=== PATIENT | male | born 1955 | race Two or more races ===

== ENCOUNTER 2020-03-28 13:19 | Inpatient (IN) | payer OTHER ==
[~2020-03-28] VITALS: Ht 170.2 cm; Wt 79.1 kg
--- NOTE | 2020-03-28 13:42 | NUR ---
BIB BY [facility] FROM HOME FOR WORSENING SOB. KNOWN COVID +. PRESENTS WITH WORSENING OF SYTMPTOMS-SOB/ABD PAIN-POOR APPETITE. EMS REPORTS PATIENT FOUND TO HAVE ROOM AIR POX OF 74%. IMPROVED TO MID 90'S OF 3L NC AFEBRILE/VSS BUT APPEARS WEAK. 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
[2020-03-28] MEDS ORDERED: EPINEPHRINE SYRINGE 0.1 MG/ML, 10ML ONE (14:00)
--- NOTE | 2020-03-28 14:05 | NUR ---
LAB AT BEDSIDE-LACTATE/2 BLOOD CULTURES AND BASIC BLOOD WORK OBTAINED CXR AT BEDSIDE
[2020-03-28 14:15] LABS: MEAN CORPUSCULAR HEMOGLOBIN 32.9 pg (27.5-34.5); MEAN CORPUSCULAR HGB CONC 34.1 g/dL (33.2-36.2); MEAN PLATELET VOLUME 7.2 fL (7.4-10.4); PLATELET COUNT 137 x10^3/uL (130-400); RED BLOOD COUNT 4.56 x10^6/uL (4.38-5.82); RED CELL DISTRIBUTION WIDTH 12.9 % (9.4-14.8)
[2020-03-28] MEDS ORDERED: CEFTRIAXONE PMX 1GM/50ML 50 ML ONE (14:22)
[2020-03-28 14:24] LABS: ALANINE AMINOTRANSFERASE 21 U/L (12-78); ALBUMIN 2.5 g/dL (3.4-5.0); ANION GAP 7 mmol/L (5-15); CALCIUM 7.8 mg/dL (8.5-10.1); CHLORIDE 104 mmol/L (98-107)
--- NOTE | 2020-03-28 14:25 | NUR ---
ABX 1/2 ADMINISTERED PER EMAR (BOTH BLOOD CULTURES ALREADY OBTAINED)
[2020-03-28 14:29] LABS: D-DIMER (DIC) 1.12 ug/mlFEU (0.00-0.52); PROTIME 11.3 Seconds (9.6-11.5)
[2020-03-28] MEDS ORDERED: PLEASE ENTER ALLERGIES MC SCH (14:30)
[2020-03-28] MEDS ORDERED: AZITHROMYCIN 500 MG in SODIUM CHLORIDE 0.9% 250 ML IVPB ONE (14:30)
[2020-03-28] MEDS ORDERED: CEFTRIAXONE PMX 1GM/50ML 50 ML IVPB ONE (14:30)
[2020-03-28 14:32] LABS: ALKALINE PHOSPHATASE 67 U/L (45-117); BILIRUBIN,TOTAL 0.5 mg/dL (0.2-1.0); CREATININE 1.03 mg/dL (0.7-1.3); TOTAL PROTEIN 7.6 g/dL (6.4-8.2)
[2020-03-28] MEDS ORDERED: SODIUM CHLORIDE 0.9% 1,000 ML IV ONE ×3 (14:35→15:30)
[2020-03-28 14:42] LABS: BASOPHILS # (AUTO) 0.02 x10^3/uL (0-0.1); BASOPHILS % (AUTO) 0 % (0-1); EOSINOPHILS # (AUTO) 0.03 x10^3/uL (0-0.4); EOSINOPHILS % (AUTO) 1 % (1-7); LYMPHOCYTES # (AUTO) 0.97 x10^3/uL (1-3.4); LYMPHOCYTES % (AUTO) 18 % (22-44); MD SCAN; MONOCYTES # (AUTO) 0.21 x10^3/uL (0.2-0.8); MONOCYTES % (AUTO) 4 % (2-9); NEUTROPHILS # (AUTO) 4.21 x10^3/uL (1.8-6.8); NEUTROPHILS % (AUTO) 77 % (42-75)
[2020-03-28] MEDS ORDERED: ACETAMINOPHEN 500 MG TABLET ONE (14:55)
[2020-03-28] MEDS ORDERED: SODIUM CHLORIDE FLUSH 10ML SYR IVF PRN (15:00)
[2020-03-28] MEDS ORDERED: ACETAMINOPHEN 500 MG TABLET PO ONE (15:00)
--- NOTE | 2020-03-28 15:05 | NUR ---
abx 1/2 complete, abx 2/2 administered per emar Patient updated on estimated poc (admit to covid unit for covid pna tx) Report to Fernando TENA
[2020-03-28] MEDS ORDERED: ONDANSETRON 2MG/ML, 2ML IVPush PRN (15:30)
[2020-03-28] MEDS ORDERED: GUAIFENESIN/DM 200-20MG, 10ML UDC PO PRN (15:30)
[2020-03-28] MEDS ORDERED: LABETALOL 5MG/ML, 20ML IVPush PRN (15:30)
[2020-03-28] MEDS ORDERED: ONDANSETRON ODT 4 MG PO PRN (15:30)
[2020-03-28] MEDS ORDERED: hydrALAzine 20 MG/ML, 1ML IVPush PRN (15:30)
[2020-03-28] MEDS ORDERED: BACLOFEN 10 MG TABLET PO PRN (15:30)
[2020-03-28] MEDS ORDERED: BUTALB/APAP/CAFFEINE 50MG/325MG/40MG PO PRN ×2 (15:30)
--- NOTE | 2020-03-28 15:39 | NUR ---
Report to Kami TENA
--- NOTE | 2020-03-28 15:43 | NUR ---
At this time pt is being treated with sepsis orders but does not meet sepsis criteria. aware.
[2020-03-28 16:09] VITALS: BP 114/67
[2020-03-28] MEDS: methylPREDNISolone SOD SUCC 40 MG/ML IVPush SCH ×2 (17:50→23:25)
[2020-03-28] MEDS: ASCORBATE SODIUM 3,000 MG in SODIUM CHLORIDE 0.9% 250 ML IVPB SCH ×2 (17:50→23:25)
[2020-03-28] MEDS: ENOXAPARIN 80 MG/0.8 ML SQ SCH (17:51)
[2020-03-28] MEDS: ACETAMINOPHEN 325 MG TABLET PO PRN (18:08)
[2020-03-28 19:24] VITALS: BP 125/68
[2020-03-29] MEDS: CEFTRIAXONE PMX 1GM/50ML 50 ML IV SCH ×2 (01:59→15:15)
[2020-03-29 02:00] VITALS: BP 159/79
[2020-03-29 05:38] LABS: BASOPHILS # (AUTO) 0.01 x10^3/uL (0-0.1); BASOPHILS % (AUTO) 0 % (0-1); EOSINOPHILS % (AUTO) 0 % (1-7); LYMPHOCYTES # (AUTO) 1.08 x10^3/uL (1-3.4); LYMPHOCYTES % (AUTO) 23 % (22-44); MD NO; MEAN CORPUSCULAR HEMOGLOBIN 32.4 pg (27.5-34.5); MEAN CORPUSCULAR HGB CONC 33.1 g/dL (33.2-36.2); MEAN PLATELET VOLUME 7.1 fL (7.4-10.4); MONOCYTES % (AUTO) 2 % (2-9); NEUTROPHILS # (AUTO) 3.57 x10^3/uL (1.8-6.8); NEUTROPHILS % (AUTO) 75 % (42-75); PLATELET COUNT 149 x10^3/uL (130-400); RED BLOOD COUNT 4.63 x10^6/uL (4.38-5.82); RED CELL DISTRIBUTION WIDTH 12.8 % (9.4-14.8)
[2020-03-29 05:49] LABS: CHLORIDE 104 mmol/L (98-107)
[2020-03-29 06:07] LABS: ALANINE AMINOTRANSFERASE 21 U/L (12-78); ALBUMIN 2.3 g/dL (3.4-5.0); ALKALINE PHOSPHATASE 65 U/L (45-117); ANION GAP 13 mmol/L (5-15); BILIRUBIN,TOTAL 0.3 mg/dL (0.2-1.0); CALCIUM 7.6 mg/dL (8.5-10.1); CREATININE 1.39 mg/dL (0.7-1.3); TOTAL PROTEIN 7.4 g/dL (6.4-8.2)
[2020-03-29] MEDS: methylPREDNISolone SOD SUCC 40 MG/ML IVPush SCH ×4 (06:10→23:52)
[2020-03-29] MEDS: ENOXAPARIN 80 MG/0.8 ML SQ SCH ×2 (06:10→18:16)
[2020-03-29] MEDS: ASCORBATE SODIUM 3,000 MG in SODIUM CHLORIDE 0.9% 250 ML IVPB SCH ×3 (06:10→20:22)
[2020-03-29 07:11] VITALS: BP 153/89
[2020-03-29] MEDS: SENNA/DOCUSATE TABLET PO SCH (09:21)
[2020-03-29] MEDS: MULTIVITS,STRESS FORMULA 1 TABLET PO SCH (09:21)
[2020-03-29] MEDS: CHOLECALCIFEROL 5,000u TAB PO SCH (09:21)
[2020-03-29] MEDS: ZINC SULFATE 220 MG CAPSULE PO SCH (09:21)
[2020-03-29 12:41] VITALS: BP 131/71
[2020-03-29] MEDS ORDERED: INSULIN LISPRO 100 UNITS/ML, PEN SQ-INSULIN SCH (13:00)
[2020-03-29] MEDS ORDERED: ALBUTEROL-IPRATROPIUM MDI INH INH SCH (15:00)
[2020-03-29] MEDS: ALBUTEROL-IPRATROPIUM MDI INH INH SCH ×2 (15:48→21:41)
[2020-03-29] MEDS: INSULIN LISPRO 100 UNITS/ML, PEN SQ-INSULIN SCH ×2 (16:29→20:23)
[2020-03-29] MEDS: AZITHROMYCIN 500 MG in SODIUM CHLORIDE 0.9% 250 ML IV SCH (16:32)
[2020-03-29 19:36] VITALS: BP 115/62
[2020-03-30 00:42] VITALS: BP 123/65
[2020-03-30] MEDS: CEFTRIAXONE PMX 1GM/50ML 50 ML IV SCH ×2 (03:18→14:47)
[2020-03-30] MEDS: ALBUTEROL-IPRATROPIUM MDI INH INH SCH ×4 (03:51→22:07)
[2020-03-30] MEDS: ASCORBATE SODIUM 3,000 MG in SODIUM CHLORIDE 0.9% 250 ML IVPB SCH ×4 (03:51→23:15)
[2020-03-30] MEDS: ENOXAPARIN 80 MG/0.8 ML SQ SCH ×2 (05:50→17:50)
[2020-03-30] MEDS: methylPREDNISolone SOD SUCC 40 MG/ML IVPush SCH ×4 (05:50→23:15)
[2020-03-30 06:44] VITALS: BP 127/67
[2020-03-30] MEDS: INSULIN LISPRO 100 UNITS/ML, PEN SQ-INSULIN SCH ×4 (09:14→20:35)
[2020-03-30] MEDS: SENNA/DOCUSATE TABLET PO SCH (09:15)
[2020-03-30] MEDS: CHOLECALCIFEROL 5,000u TAB PO SCH (09:15)
[2020-03-30] MEDS: MULTIVITS,STRESS FORMULA 1 TABLET PO SCH (09:15)
[2020-03-30] MEDS: ZINC SULFATE 220 MG CAPSULE PO SCH (09:15)
[2020-03-30 12:12] VITALS: BP 121/72
[2020-03-30] MEDS: AZITHROMYCIN 500 MG in SODIUM CHLORIDE 0.9% 250 ML IV SCH (16:15)
[2020-03-30 19:35] VITALS: BP 121/61
[2020-03-31 01:44] VITALS: BP 127/69
[2020-03-31 02:20] VITALS: BP 125/53
[2020-03-31] MEDS: CEFTRIAXONE PMX 1GM/50ML 50 ML IV SCH ×2 (02:39→14:41)
[2020-03-31] MEDS: ALBUTEROL-IPRATROPIUM MDI INH INH SCH ×4 (03:37→21:48)
[2020-03-31] MEDS: methylPREDNISolone SOD SUCC 40 MG/ML IVPush SCH ×4 (05:03→21:51)
[2020-03-31] MEDS: ASCORBATE SODIUM 3,000 MG in SODIUM CHLORIDE 0.9% 250 ML IVPB SCH ×3 (05:03→20:47)
[2020-03-31] MEDS: ENOXAPARIN 80 MG/0.8 ML SQ SCH ×2 (05:03→19:35)
[2020-03-31] MEDS: SENNA/DOCUSATE TABLET PO SCH (06:56)
[2020-03-31 07:49] VITALS: BP 137/66
[2020-03-31] MEDS: INSULIN LISPRO 100 UNITS/ML, PEN SQ-INSULIN SCH ×4 (08:34→20:35)
[2020-03-31] MEDS: MULTIVITS,STRESS FORMULA 1 TABLET PO SCH (08:34)
[2020-03-31] MEDS: CHOLECALCIFEROL 5,000u TAB PO SCH (08:34)
[2020-03-31] MEDS: ZINC SULFATE 220 MG CAPSULE PO SCH (08:35)
[2020-03-31] MEDS ORDERED: SIMETHICONE 80 MG CHEW TAB PO PRN (10:30)
[2020-03-31] MEDS ORDERED: CALCIUM CARBONATE 500 MG TAB.CHEW PO PRN (10:30)
[2020-03-31 13:29] VITALS: BP 131/56
[2020-03-31] MEDS ORDERED: REMDESIVIR 200 MG in SODIUM CHLORIDE 0.9% 250 ML IVPB ONE (15:00)
[2020-03-31] MEDS: AZITHROMYCIN 500 MG in SODIUM CHLORIDE 0.9% 250 ML IV SCH (15:50)
[2020-03-31 19:56] VITALS: BP 133/55
[2020-04-01] MEDS: ACETAMINOPHEN 325 MG TABLET PO PRN ×2 (01:28→23:46)
[2020-04-01] MEDS: CEFTRIAXONE PMX 1GM/50ML 50 ML IV SCH ×2 (02:03→15:43)
[2020-04-01 02:19] VITALS: BP 128/54
[2020-04-01] MEDS: ASCORBATE SODIUM 3,000 MG in SODIUM CHLORIDE 0.9% 250 ML IVPB SCH ×4 (03:16→20:45)
[2020-04-01] MEDS: ALBUTEROL-IPRATROPIUM MDI INH INH SCH ×4 (03:17→21:00)
[2020-04-01] MEDS: methylPREDNISolone SOD SUCC 40 MG/ML IVPush SCH ×4 (05:14→23:40)
[2020-04-01] MEDS: ENOXAPARIN 80 MG/0.8 ML SQ SCH ×2 (05:15→18:36)
[2020-04-01 06:22] LABS: BASOPHILS % (AUTO) 0 % (0-1); EOSINOPHILS % (AUTO) 0 % (1-7); LYMPHOCYTES # (AUTO) 0.69 x10^3/uL (1-3.4); LYMPHOCYTES % (AUTO) 7 % (22-44); MD NO; MEAN CORPUSCULAR HEMOGLOBIN 32.5 pg (27.5-34.5); MEAN CORPUSCULAR HGB CONC 33.4 g/dL (33.2-36.2); MEAN PLATELET VOLUME 7.4 fL (7.4-10.4); MONOCYTES # (AUTO) 0.16 x10^3/uL (0.2-0.8); MONOCYTES % (AUTO) 2 % (2-9); NEUTROPHILS # (AUTO) 8.68 x10^3/uL (1.8-6.8); NEUTROPHILS % (AUTO) 91 % (42-75); PLATELET COUNT 205 x10^3/uL (130-400); RED BLOOD COUNT 4.18 x10^6/uL (4.38-5.82); RED CELL DISTRIBUTION WIDTH 13.1 % (9.4-14.8)
[2020-04-01 06:29] LABS: ALANINE AMINOTRANSFERASE 20 U/L (12-78); ALBUMIN 2.2 g/dL (3.4-5.0); ALKALINE PHOSPHATASE 81 U/L (45-117); ANION GAP 11 mmol/L (5-15); BILIRUBIN,TOTAL 0.3 mg/dL (0.2-1.0); CALCIUM 7.5 mg/dL (8.5-10.1); CHLORIDE 112 mmol/L (98-107); CREATININE 0.79 mg/dL (0.7-1.3)
[2020-04-01 06:31] LABS: TOTAL PROTEIN 6.5 g/dL (6.4-8.2)
[2020-04-01 07:11] VITALS: BP 124/58
[2020-04-01] MEDS: SENNA/DOCUSATE TABLET PO SCH (09:00)
[2020-04-01] MEDS: CHOLECALCIFEROL 5,000u TAB PO SCH (09:55)
[2020-04-01] MEDS: ZINC SULFATE 220 MG CAPSULE PO SCH (09:55)
[2020-04-01] MEDS: MULTIVITS,STRESS FORMULA 1 TABLET PO SCH (09:55)
[2020-04-01] MEDS: INSULIN LISPRO 100 UNITS/ML, PEN SQ-INSULIN SCH ×4 (09:55→20:46)
[2020-04-01 12:04] VITALS: BP 132/64
[2020-04-01] MEDS: FLUTICASONE/VILANTEROL 100-25MCG/INH INH SCH (14:09)
[2020-04-01] MEDS: POTASSIUM CHLORIDE 20 MEQ in SODIUM CHLORIDE 0.9% 250 ML IV SCH ×2 (14:09→21:01)
[2020-04-01] MEDS: AZITHROMYCIN 500 MG in SODIUM CHLORIDE 0.9% 250 ML IV SCH (17:04)
[2020-04-01 20:00] VITALS: BP 130/58
[2020-04-01] MEDS: REMDESIVIR 100 MG in SODIUM CHLORIDE 0.9% 250 ML IVPB SCH (20:40)
[2020-04-01] MEDS: MELATONIN 5 MG TABLET PO PRN (23:46)
[2020-04-02] MEDS: CEFTRIAXONE PMX 1GM/50ML 50 ML IV SCH ×2 (02:18→14:38)
[2020-04-02 02:30] VITALS: BP 128/58
[2020-04-02] MEDS: ASCORBATE SODIUM 3,000 MG in SODIUM CHLORIDE 0.9% 250 ML IVPB SCH ×2 (03:16→08:28)
[2020-04-02] MEDS: ALBUTEROL-IPRATROPIUM MDI INH INH SCH ×4 (03:16→20:59)
[2020-04-02] MEDS: ENOXAPARIN 80 MG/0.8 ML SQ SCH ×2 (05:29→17:56)
[2020-04-02] MEDS: methylPREDNISolone SOD SUCC 40 MG/ML IVPush SCH ×2 (05:29→11:57)
[2020-04-02 06:19] LABS: ALANINE AMINOTRANSFERASE 20 U/L (12-78); ANION GAP 8 mmol/L (5-15); CALCIUM 7.4 mg/dL (8.5-10.1); CHLORIDE 115 mmol/L (98-107); CREATININE 0.74 mg/dL (0.7-1.3)
[2020-04-02 06:21] LABS: ALKALINE PHOSPHATASE 111 U/L (45-117); BILIRUBIN,TOTAL 0.4 mg/dL (0.2-1.0); TOTAL PROTEIN 6.4 g/dL (6.4-8.2)
[2020-04-02 06:39] VITALS: BP 136/65
[2020-04-02] MEDS: INSULIN LISPRO 100 UNITS/ML, PEN SQ-INSULIN SCH ×4 (07:00→21:21)
[2020-04-02] MEDS: POTASSIUM CHLORIDE 20 MEQ in SODIUM CHLORIDE 0.9% 250 ML IV SCH (08:51)
[2020-04-02] MEDS: SENNA/DOCUSATE TABLET PO SCH (09:00)
[2020-04-02] MEDS: FLUTICASONE/VILANTEROL 100-25MCG/INH INH SCH (09:44)
[2020-04-02] MEDS: CHOLECALCIFEROL 5,000u TAB PO SCH (11:57)
[2020-04-02] MEDS: MULTIVITS,STRESS FORMULA 1 TABLET PO SCH (11:57)
[2020-04-02] MEDS: THIAMINE 100MG TABLET PO SCH ×2 (11:57→20:48)
[2020-04-02] MEDS: ZINC SULFATE 220 MG CAPSULE PO SCH (11:57)
[2020-04-02] MEDS: ACETAMINOPHEN 325 MG TABLET PO PRN ×2 (12:08→16:24)
[2020-04-02 12:18] VITALS: BP 134/53
[2020-04-02] MEDS: AZITHROMYCIN 500 MG in SODIUM CHLORIDE 0.9% 250 ML IV SCH (15:20)
[2020-04-02] MEDS ORDERED: POTASSIUM CHLORIDE 20 MEQ TAB.ER.PRT PO ONE (16:30)
[2020-04-02] MEDS ORDERED: FUROSEMIDE 40 MG/4 ML IV ONE (16:30)
[2020-04-02] MEDS: REMDESIVIR 100 MG in SODIUM CHLORIDE 0.9% 250 ML IVPB SCH (17:56)
[2020-04-02 18:37] LABS: TROPONIN I < 0.015 ng/mL (0.000-0.045)
[2020-04-02] MEDS: MELATONIN 5 MG TABLET PO PRN (20:48)
[2020-04-02 23:35] LABS: TROPONIN I < 0.015 ng/mL (0.000-0.045)
[2020-04-03] MEDS: CEFTRIAXONE PMX 1GM/50ML 50 ML IV SCH ×2 (02:54→13:54)
[2020-04-03] MEDS: ALBUTEROL-IPRATROPIUM MDI INH INH SCH ×4 (03:16→21:08)
[2020-04-03 04:30] LABS: PLATELET COUNT 253 x10^3/uL (130-400)
[2020-04-03 04:39] LABS: INTERNATIONAL NORMALIZED RATIO 1.31 (0.93-1.1); PROTHROMBIN TIME 13.5 Seconds (9.6-11.5)
[2020-04-03 04:45] LABS: ALBUMIN 2.1 g/dL (3.4-5.0); ANION GAP 9 mmol/L (5-15); CHLORIDE 112 mmol/L (98-107)
[2020-04-03 04:50] LABS: ALANINE AMINOTRANSFERASE 17 U/L (12-78); ALKALINE PHOSPHATASE 107 U/L (45-117); BILIRUBIN,TOTAL 0.5 mg/dL (0.2-1.0); CREATININE 0.76 mg/dL (0.7-1.3); TOTAL PROTEIN 6.3 g/dL (6.4-8.2); TROPONIN I < 0.015 ng/mL (0.000-0.045)
[2020-04-03] MEDS: ENOXAPARIN 80 MG/0.8 ML SQ SCH ×2 (06:25→17:33)
[2020-04-03] MEDS: INSULIN LISPRO 100 UNITS/ML, PEN SQ-INSULIN SCH ×4 (06:37→20:57)
[2020-04-03] MEDS ORDERED: POTASSIUM CHLORIDE 20 MEQ TAB.ER.PRT PO ONE ×2 (07:00→14:00)
[2020-04-03 08:02] LABS: C-REACTIVE PROTEIN, QUANT 6.8 mg/dL (0.02-0.49)
[2020-04-03] MEDS: FLUTICASONE/VILANTEROL 100-25MCG/INH INH SCH (08:16)
[2020-04-03] MEDS: ZINC SULFATE 220 MG CAPSULE PO SCH (08:30)
[2020-04-03] MEDS: MULTIVITS,STRESS FORMULA 1 TABLET PO SCH (08:30)
[2020-04-03] MEDS: SENNA/DOCUSATE TABLET PO SCH (08:30)
[2020-04-03] MEDS: THIAMINE 100MG TABLET PO SCH ×2 (08:30→20:51)
[2020-04-03] MEDS: CHOLECALCIFEROL 5,000u TAB PO SCH (08:31)
[2020-04-03 09:00] VITALS: BP 103/54
[2020-04-03] MEDS ORDERED: FUROSEMIDE 40 MG/4 ML IV ONE (09:00)
[2020-04-03] MEDS: ACETAMINOPHEN 325 MG TABLET PO PRN (09:37)
[2020-04-03] MEDS: REMDESIVIR 100 MG in SODIUM CHLORIDE 0.9% 250 ML IVPB SCH (17:33)
[2020-04-03] MEDS: RISPERIDONE 0.5 MG TABLET PO SCH (20:52)
[2020-04-04] MEDS: CEFTRIAXONE PMX 1GM/50ML 50 ML IV SCH ×2 (02:07→13:49)
[2020-04-04] MEDS: LORazepam 2 MG/ML, 1ML IVPush PRN ×2 (02:07→09:22)
[2020-04-04] MEDS: ALBUTEROL-IPRATROPIUM MDI INH INH SCH (04:00)
[2020-04-04 04:19] LABS: MEAN CORPUSCULAR HEMOGLOBIN 32.3 pg (27.5-34.5); MEAN CORPUSCULAR HGB CONC 33.4 g/dL (33.2-36.2); MEAN PLATELET VOLUME 6.8 fL (7.4-10.4); PLATELET COUNT 239 x10^3/uL (130-400); RED BLOOD COUNT 4.05 x10^6/uL (4.38-5.82); RED CELL DISTRIBUTION WIDTH 13.1 % (9.4-14.8)
[2020-04-04 04:30] LABS: ALANINE AMINOTRANSFERASE 13 U/L (12-78); ALBUMIN 1.8 g/dL (3.4-5.0); ANION GAP 10 mmol/L (5-15); CALCIUM 6.8 mg/dL (8.5-10.1); CHLORIDE 111 mmol/L (98-107); CREATININE 1.04 mg/dL (0.7-1.3)
[2020-04-04 04:32] LABS: ALKALINE PHOSPHATASE 96 U/L (45-117); BILIRUBIN,TOTAL 0.7 mg/dL (0.2-1.0)
[2020-04-04 04:47] LABS: BASOPHILS # (AUTO) 0.02 x10^3/uL (0-0.1); BASOPHILS % (AUTO) 0 % (0-1); EOSINOPHILS # (AUTO) 0.08 x10^3/uL (0-0.4); EOSINOPHILS % (AUTO) 1 % (1-7); LYMPHOCYTES # (AUTO) 0.53 x10^3/uL (1-3.4); LYMPHOCYTES % (AUTO) 5 % (22-44); MD SCAN; MONOCYTES # (AUTO) 0.04 x10^3/uL (0.2-0.8); MONOCYTES % (AUTO) 0 % (2-9); NEUTROPHILS # (AUTO) 9.73 x10^3/uL (1.8-6.8); NEUTROPHILS % (AUTO) 94 % (42-75)
[2020-04-04] MEDS ORDERED: ALBUTEROL/IPRATROPIUM 2.5MG/0.5MG, 3 ML NEB ONE ×2 (06:30)
[2020-04-04] MEDS: ENOXAPARIN 80 MG/0.8 ML SQ SCH ×2 (06:45→17:15)
[2020-04-04] MEDS: INSULIN LISPRO 100 UNITS/ML, PEN SQ-INSULIN SCH ×4 (06:48→21:56)
[2020-04-04] MEDS ORDERED: IPRATROPIUM 0.5 MG/2.5 ML INHA INLINE PRN (07:30)
[2020-04-04] MEDS ORDERED: SODIUM CHLORIDE 0.9% 1,000ML IVBOLUS ONE (07:30)
[2020-04-04] MEDS: MIDAZOLAM HCL 50 MG in SODIUM CHLORIDE 0.9% 40 ML IV PRN ×3 (07:57→17:58)
[2020-04-04] MEDS ORDERED: PROPOFOL 10 MG/ML, 100ML IV ONE (08:00)
[2020-04-04] MEDS ORDERED: SUCCINYLCHOLINE 20 MG/ML, 10ML ONE (08:00)
[2020-04-04] MEDS ORDERED: ETOMIDATE 20 MG/10 ML ONE (08:00)
[2020-04-04] MEDS ORDERED: PROPOFOL 100 ML IV ONE (08:51)
[2020-04-04] MEDS: FLUTICASONE/VILANTEROL 100-25MCG/INH INH SCH (09:00)
[2020-04-04] MEDS: PROPOFOL 100 ML IV PRN ×2 (10:00→17:57)
[2020-04-04] MEDS: NOREPINEPHRINE 8 MG in SODIUM CHLORIDE 0.9% 242 ML IV PRN (10:00)
[2020-04-04] MEDS ORDERED: POTASSIUM CHLORIDE 20 MEQ TAB.ER.PRT PO ONE (10:00)
[2020-04-04] MEDS: ALBUTEROL/IPRATROPIUM 2.5MG/0.5MG, 3 ML INLINE SCH ×4 (10:28→22:18)
[2020-04-04] MEDS: MULTIVITS,STRESS FORMULA 1 TABLET PO SCH (10:37)
[2020-04-04] MEDS: SENNA/DOCUSATE TABLET PO SCH (10:38)
[2020-04-04] MEDS: ACETAMINOPHEN 325 MG TABLET PO PRN ×2 (10:38→18:31)
[2020-04-04] MEDS: THIAMINE 100MG TABLET PO SCH ×2 (10:39→21:56)
[2020-04-04] MEDS: ZINC SULFATE 220 MG CAPSULE PO SCH (10:39)
[2020-04-04] MEDS: RISPERIDONE 0.5 MG TABLET PO SCH ×2 (10:39→21:00)
[2020-04-04] MEDS: CHOLECALCIFEROL 5,000u TAB PO SCH (10:39)
[2020-04-04] MEDS: REMDESIVIR 100 MG in SODIUM CHLORIDE 0.9% 250 ML IVPB SCH (17:14)
[2020-04-04] MEDS: MELATONIN 5 MG TABLET PO PRN (21:56)
[2020-04-04 22:36] LABS: MICROSCOPIC INDICATED
[2020-04-05] MEDS: CEFTRIAXONE PMX 1GM/50ML 50 ML IV SCH (00:26)
[2020-04-05] MEDS: PROPOFOL 100 ML IV PRN ×5 (01:10→21:20)
[2020-04-05] MEDS: NOREPINEPHRINE 8 MG in SODIUM CHLORIDE 0.9% 242 ML IV PRN ×4 (01:42→22:50)
[2020-04-05] MEDS: ALBUTEROL/IPRATROPIUM 2.5MG/0.5MG, 3 ML INLINE SCH ×6 (02:12→23:10)
[2020-04-05] MEDS: MIDAZOLAM HCL 50 MG in SODIUM CHLORIDE 0.9% 40 ML IV PRN ×4 (03:21→19:59)
[2020-04-05] MEDS: FENTANYL PF 1,000 MCG in SODIUM CHLORIDE 0.9% 80 ML IV PRN ×5 (03:43→20:40)
[2020-04-05 04:54] LABS: MEAN CORPUSCULAR HEMOGLOBIN 32.2 pg (27.5-34.5); MEAN CORPUSCULAR HGB CONC 32.7 g/dL (33.2-36.2); MEAN PLATELET VOLUME 6.9 fL (7.4-10.4); PLATELET COUNT 267 x10^3/uL (130-400); RED BLOOD COUNT 4.24 x10^6/uL (4.38-5.82); RED CELL DISTRIBUTION WIDTH 13.4 % (9.4-14.8)
[2020-04-05 05:01] LABS: ALBUMIN 1.7 g/dL (3.4-5.0); ANION GAP 9 mmol/L (5-15); CALCIUM 6.8 mg/dL (8.5-10.1); CHLORIDE 110 mmol/L (98-107)
[2020-04-05 05:05] LABS: ALANINE AMINOTRANSFERASE 14 U/L (12-78); ALKALINE PHOSPHATASE 106 U/L (45-117); BILIRUBIN,TOTAL 0.6 mg/dL (0.2-1.0); CREATININE 1.14 mg/dL (0.7-1.3); TOTAL PROTEIN 6.3 g/dL (6.4-8.2)
[2020-04-05 05:34] LABS: BASOPHILS # (AUTO) 0.01 x10^3/uL (0-0.1); BASOPHILS % (AUTO) 0 % (0-1); EOSINOPHILS # (AUTO) 0.35 x10^3/uL (0-0.4); EOSINOPHILS % (AUTO) 3 % (1-7); LYMPHOCYTES # (AUTO) 0.61 x10^3/uL (1-3.4); LYMPHOCYTES % (AUTO) 4 % (22-44); MD SCAN; MONOCYTES # (AUTO) 0.06 x10^3/uL (0.2-0.8); MONOCYTES % (AUTO) 1 % (2-9); NEUTROPHILS # (AUTO) 12.67 x10^3/uL (1.8-6.8); NEUTROPHILS % (AUTO) 93 % (42-75)
[2020-04-05] MEDS: ENOXAPARIN 80 MG/0.8 ML SQ SCH ×2 (06:00→17:31)
[2020-04-05] MEDS: INSULIN LISPRO 100 UNITS/ML, PEN SQ-INSULIN SCH ×4 (06:31→20:44)
[2020-04-05] MEDS: FLUTICASONE/VILANTEROL 100-25MCG/INH INH SCH (06:37)
[2020-04-05] MEDS: MEROPENEM 1 GM in SODIUM CHLORIDE 0.9% 100 ML IV SCH ×3 (08:41→22:04)
[2020-04-05] MEDS: MULTIVITS,STRESS FORMULA 1 TABLET PO SCH (08:42)
[2020-04-05] MEDS: ZINC SULFATE 220 MG CAPSULE PO SCH (08:42)
[2020-04-05] MEDS: CHOLECALCIFEROL 5,000u TAB PO SCH (08:43)
[2020-04-05] MEDS: RISPERIDONE 0.5 MG TABLET PO SCH ×2 (08:43→21:00)
[2020-04-05] MEDS: SENNA/DOCUSATE TABLET PO SCH (08:43)
[2020-04-05] MEDS: THIAMINE 100MG TABLET PO SCH ×2 (08:43→21:20)
[2020-04-05 09:00] VITALS: BP 113/57
[2020-04-05] MEDS ORDERED: POTASSIUM CHLORIDE 10% 20 MEQ/15 ML UDC PO ONE (11:00)
[2020-04-05] MEDS: FAMOTIDINE 20 MG/2 ML IVPush SCH ×2 (11:32→21:20)
[2020-04-05 13:35] VITALS: BP 102/55
[2020-04-05 13:45] VITALS: BP 110/56
[2020-04-05 14:00] VITALS: BP 119/58
[2020-04-05 14:15] VITALS: BP 120/61
[2020-04-05] MEDS: BACITRACIN/POLYMIXIN B SULFATE OINT 14 GM TP PRN (22:04)
[2020-04-06] MEDS: PROPOFOL 100 ML IV PRN ×3 (00:51→12:38)
[2020-04-06] MEDS: FENTANYL PF 2,500 MCG in SODIUM CHLORIDE 0.9% 200 ML IV PRN ×2 (01:13→12:16)
[2020-04-06] MEDS: ACETAMINOPHEN 325 MG TABLET PO PRN (01:15)
[2020-04-06] MEDS: MIDAZOLAM HCL 50 MG in SODIUM CHLORIDE 0.9% 40 ML IV PRN ×3 (02:01→15:32)
[2020-04-06] MEDS: ALBUTEROL/IPRATROPIUM 2.5MG/0.5MG, 3 ML INLINE SCH ×6 (02:06→22:43)
[2020-04-06] MEDS: NOREPINEPHRINE 8 MG in SODIUM CHLORIDE 0.9% 242 ML IV PRN ×3 (04:11→22:04)
[2020-04-06 04:44] LABS: MEAN CORPUSCULAR HEMOGLOBIN 32.3 pg (27.5-34.5); MEAN CORPUSCULAR HGB CONC 32.7 g/dL (33.2-36.2); MEAN PLATELET VOLUME 7.1 fL (7.4-10.4); PLATELET COUNT 184 x10^3/uL (130-400); RED BLOOD COUNT 3.65 x10^6/uL (4.38-5.82); RED CELL DISTRIBUTION WIDTH 13.9 % (9.4-14.8)
[2020-04-06 04:57] LABS: ALBUMIN 1.3 g/dL (3.4-5.0); ANION GAP 6 mmol/L (5-15); CALCIUM 6.5 mg/dL (8.5-10.1); CHLORIDE 113 mmol/L (98-107)
[2020-04-06 05:01] LABS: ALANINE AMINOTRANSFERASE 9 U/L (12-78); ALKALINE PHOSPHATASE 100 U/L (45-117); BILIRUBIN,TOTAL 0.5 mg/dL (0.2-1.0); CREATININE 1.88 mg/dL (0.7-1.3); TOTAL PROTEIN 5.7 g/dL (6.4-8.2)
[2020-04-06 05:39] LABS: BASOPHILS % (AUTO) 0 % (0-1); EOSINOPHILS # (AUTO) 0.37 x10^3/uL (0-0.4); EOSINOPHILS % (AUTO) 3 % (1-7); LYMPHOCYTES # (AUTO) 0.31 x10^3/uL (1-3.4); LYMPHOCYTES % (AUTO) 2 % (22-44); MD SCAN; MONOCYTES # (AUTO) 0.08 x10^3/uL (0.2-0.8); MONOCYTES % (AUTO) 1 % (2-9); NEUTROPHILS # (AUTO) 13.28 x10^3/uL (1.8-6.8); NEUTROPHILS % (AUTO) 95 % (42-75)
[2020-04-06] MEDS: ENOXAPARIN 80 MG/0.8 ML SQ SCH ×2 (06:24→18:00)
[2020-04-06] MEDS: MEROPENEM 1 GM in SODIUM CHLORIDE 0.9% 100 ML IV SCH ×3 (06:24→20:26)
[2020-04-06] MEDS: INSULIN LISPRO 100 UNITS/ML, PEN SQ-INSULIN SCH ×4 (06:28→20:27)
[2020-04-06] MEDS ORDERED: CALCIUM CHLORIDE 27.2 MEQ in SODIUM CHLORIDE 0.9% 100 ML IV ONE (07:00)
[2020-04-06] MEDS: SENNA/DOCUSATE TABLET PO SCH (08:29)
[2020-04-06] MEDS: CHOLECALCIFEROL 5,000u TAB PO SCH (08:29)
[2020-04-06] MEDS: THIAMINE 100MG TABLET PO SCH ×2 (08:29→20:26)
[2020-04-06] MEDS: ZINC SULFATE 220 MG CAPSULE PO SCH (08:29)
[2020-04-06] MEDS: FAMOTIDINE 20 MG/2 ML IVPush SCH ×2 (08:30→20:26)
[2020-04-06] MEDS: MULTIVITS,STRESS FORMULA 1 TABLET PO SCH (08:30)
[2020-04-06] MEDS: RISPERIDONE 0.5 MG TABLET PO SCH ×2 (08:30→20:10)
[2020-04-06] MEDS: INSULIN GLARGINE 100 UNITS/ML, PEN SQ-INSULIN SCH ×2 (09:00→20:27)
[2020-04-06] MEDS: REMDESIVIR 100 MG in SODIUM CHLORIDE 0.9% 250 ML IVPB SCH (09:30)
[2020-04-06] MEDS: ALBUMIN HUMAN 25% 100 ML IV SCH ×3 (10:49→22:02)
[2020-04-07] MEDS: FENTANYL PF 2,500 MCG in SODIUM CHLORIDE 0.9% 200 ML IV PRN ×2 (02:24→19:20)
[2020-04-07] MEDS: PROPOFOL 100 ML IV PRN ×5 (02:28→22:51)
[2020-04-07] MEDS: ALBUTEROL/IPRATROPIUM 2.5MG/0.5MG, 3 ML INLINE SCH ×6 (02:43→22:09)
[2020-04-07] MEDS: ACETAMINOPHEN 325 MG TABLET PO PRN (04:12)
[2020-04-07] MEDS: ALBUMIN HUMAN 25% 100 ML IV SCH (04:13)
[2020-04-07] MEDS: ENOXAPARIN 80 MG/0.8 ML SQ SCH (04:59)
[2020-04-07] MEDS: NOREPINEPHRINE 8 MG in SODIUM CHLORIDE 0.9% 242 ML IV PRN ×3 (05:57→16:38)
[2020-04-07 06:18] LABS: BASOPHILS # (AUTO) 0.06 x10^3/uL (0-0.1); BASOPHILS % (AUTO) 1 % (0-1); EOSINOPHILS # (AUTO) 0.43 x10^3/uL (0-0.4); EOSINOPHILS % (AUTO) 3 % (1-7); LYMPHOCYTES # (AUTO) 0.31 x10^3/uL (1-3.4); LYMPHOCYTES % (AUTO) 2 % (22-44); MD NO; MEAN CORPUSCULAR HEMOGLOBIN 32.6 pg (27.5-34.5); MEAN CORPUSCULAR HGB CONC 33.8 g/dL (33.2-36.2); MEAN PLATELET VOLUME 7.2 fL (7.4-10.4); MONOCYTES # (AUTO) 0.08 x10^3/uL (0.2-0.8); MONOCYTES % (AUTO) 1 % (2-9); NEUTROPHILS # (AUTO) 12.04 x10^3/uL (1.8-6.8); NEUTROPHILS % (AUTO) 93 % (42-75); PLATELET COUNT 147 x10^3/uL (130-400); RED CELL DISTRIBUTION WIDTH 14.2 % (9.4-14.8)
[2020-04-07 06:19] LABS: INTERNATIONAL NORMALIZED RATIO 1.3 (0.93-1.1); PROTHROMBIN TIME 13.4 Seconds (9.6-11.5)
[2020-04-07 06:22] LABS: ALANINE AMINOTRANSFERASE 8 U/L (12-78); ALBUMIN 2.4 g/dL (3.4-5.0); ANION GAP 8 mmol/L (5-15); CALCIUM 7.9 mg/dL (8.5-10.1); CHLORIDE 114 mmol/L (98-107); CREATININE 2.64 mg/dL (0.7-1.3)
[2020-04-07 06:25] LABS: ALKALINE PHOSPHATASE 86 U/L (45-117); BILIRUBIN,TOTAL 1.3 mg/dL (0.2-1.0); TOTAL PROTEIN 6.4 g/dL (6.4-8.2)
[2020-04-07] MEDS: INSULIN LISPRO 100 UNITS/ML, PEN SQ-INSULIN SCH ×4 (07:50→21:50)
[2020-04-07] MEDS ORDERED: HEPARIN wt. based STROKE protocol MC PRN (08:30)
[2020-04-07] MEDS ORDERED: HEPARIN 5,000 UNITS/ML, 1ML IV ONE (09:00)
[2020-04-07] MEDS ORDERED: HEPARIN 25,000 UNITS/250ML PMX 250 ML IV PRN (09:00)
[2020-04-07] MEDS ORDERED: HEPARIN 5,000 UNITS/ML, 1ML IV PRN (09:00)
[2020-04-07] MEDS: ZINC SULFATE 220 MG CAPSULE PO SCH (09:27)
[2020-04-07] MEDS: THIAMINE 100MG TABLET PO SCH ×2 (09:27→21:36)
[2020-04-07] MEDS: SENNA/DOCUSATE TABLET PO SCH (09:27)
[2020-04-07] MEDS: MULTIVITS,STRESS FORMULA 1 TABLET PO SCH (09:27)
[2020-04-07] MEDS: MEROPENEM 1 GM in SODIUM CHLORIDE 0.9% 100 ML IV SCH ×2 (09:28→21:35)
[2020-04-07] MEDS: CHOLECALCIFEROL 5,000u TAB PO SCH (09:28)
[2020-04-07] MEDS: RISPERIDONE 0.5 MG TABLET PO SCH ×2 (09:29→21:00)
[2020-04-07] MEDS: REMDESIVIR 100 MG in SODIUM CHLORIDE 0.9% 250 ML IVPB SCH (09:42)
[2020-04-07] MEDS: INSULIN GLARGINE 100 UNITS/ML, PEN SQ-INSULIN SCH ×2 (10:08→21:51)
[2020-04-07] MEDS: FAMOTIDINE 20 MG/2 ML IVPush SCH (21:35)
[2020-04-08] MEDS: ALBUTEROL/IPRATROPIUM 2.5MG/0.5MG, 3 ML INLINE SCH ×6 (02:16→22:08)
[2020-04-08] MEDS: NOREPINEPHRINE 8 MG in SODIUM CHLORIDE 0.9% 242 ML IV PRN ×2 (02:48→11:41)
[2020-04-08] MEDS: PROPOFOL 100 ML IV PRN ×2 (04:23→12:05)
[2020-04-08 04:59] LABS: ALANINE AMINOTRANSFERASE 15 U/L (12-78); ALBUMIN 1.7 g/dL (3.4-5.0); ANION GAP 5 mmol/L (5-15); CALCIUM 7.1 mg/dL (8.5-10.1); CHLORIDE 112 mmol/L (98-107)
[2020-04-08] MEDS ORDERED: HEPARIN 5,000 UNITS/ML, 1ML IV ONE (05:00)
[2020-04-08 05:02] LABS: ALKALINE PHOSPHATASE 100 U/L (45-117); BILIRUBIN,TOTAL 1.4 mg/dL (0.2-1.0); CREATININE 3.32 mg/dL (0.7-1.3); TOTAL PROTEIN 5.9 g/dL (6.4-8.2)
[2020-04-08] MEDS: INSULIN LISPRO 100 UNITS/ML, PEN SQ-INSULIN SCH ×4 (05:55→22:44)
[2020-04-08] MEDS: SENNA/DOCUSATE TABLET PO SCH (08:06)
[2020-04-08 08:43] LABS: MEAN CORPUSCULAR HEMOGLOBIN 32.4 pg (27.5-34.5); MEAN CORPUSCULAR HGB CONC 33.3 g/dL (33.2-36.2); MEAN PLATELET VOLUME 7.1 fL (7.4-10.4); PLATELET COUNT 129 x10^3/uL (130-400); RED BLOOD COUNT 3.44 x10^6/uL (4.38-5.82)
[2020-04-08] MEDS: MEROPENEM 1 GM in SODIUM CHLORIDE 0.9% 100 ML IV SCH ×2 (08:47→22:43)
[2020-04-08] MEDS: ZINC SULFATE 220 MG CAPSULE PO SCH (08:49)
[2020-04-08] MEDS: CHOLECALCIFEROL 5,000u TAB PO SCH (08:49)
[2020-04-08] MEDS: MULTIVITS,STRESS FORMULA 1 TABLET PO SCH (08:49)
[2020-04-08] MEDS: THIAMINE 100MG TABLET PO SCH ×2 (08:49→21:00)
[2020-04-08] MEDS ORDERED: REMDESIVIR 50 MG in SODIUM CHLORIDE 0.9% 250 ML IVPB SCH (09:00)
[2020-04-08 09:22] LABS: BASOPHILS # (AUTO) 0.03 x10^3/uL (0-0.1); BASOPHILS % (AUTO) 0 % (0-1); EOSINOPHILS # (AUTO) 0.42 x10^3/uL (0-0.4); EOSINOPHILS % (AUTO) 3 % (1-7); LYMPHOCYTES # (AUTO) 0.53 x10^3/uL (1-3.4); LYMPHOCYTES % (AUTO) 4 % (22-44); MD SCAN; MONOCYTES # (AUTO) 0.35 x10^3/uL (0.2-0.8); MONOCYTES % (AUTO) 3 % (2-9); NEUTROPHILS # (AUTO) 11.23 x10^3/uL (1.8-6.8); NEUTROPHILS % (AUTO) 90 % (42-75)
[2020-04-08] MEDS: HEPARIN 25,000 UNITS/250ML PMX 250 ML IV PRN (09:25)
[2020-04-08] MEDS ORDERED: FUROSEMIDE 100 MG/10 ML IV ONE ×2 (09:30→14:30)
[2020-04-08] MEDS ORDERED: FUROSEMIDE 40 MG/4 ML ONE (09:34)
[2020-04-08] MEDS: BACITRACIN/POLYMIXIN B SULFATE OINT 14 GM TP PRN (10:00)
[2020-04-08] MEDS: VECURONIUM 50 MG in SODIUM CHLORIDE 0.9% 50 ML IV PRN ×2 (11:40→16:54)
[2020-04-08 11:41] LABS: CLOSTRIDIUM DIFFICILE ANTIGEN NEGATIVE; CLOSTRIDIUM DIFFICILE TOXIN NEGATIVE (Negative)
[2020-04-08] MEDS: INSULIN GLARGINE 100 UNITS/ML, PEN SQ-INSULIN SCH ×2 (11:42→22:45)
[2020-04-08] MEDS ORDERED: VECURONIUM 10 MG ONE (14:12)
[2020-04-08] MEDS ORDERED: VECURONIUM 10 MG IVPush ONE (14:30)
[2020-04-08] MEDS ORDERED: SODIUM BICARBONATE 1 MEQ/ML, 50ML VIAL IVPush ONE (18:06)
[2020-04-08] MEDS ORDERED: SODIUM BICARBONATE 8.4% 100 MEQ in DEXTROSE 5% 1,000 ML IV SCH (18:30)
[2020-04-08] MEDS: FAMOTIDINE 20 MG/2 ML IVPush SCH (22:43)
[2020-04-09] MEDS: ALBUTEROL/IPRATROPIUM 2.5MG/0.5MG, 3 ML INLINE SCH ×6 (02:16→22:38)
[2020-04-09 05:41] LABS: MEAN CORPUSCULAR HEMOGLOBIN 32.3 pg (27.5-34.5); MEAN CORPUSCULAR HGB CONC 33.2 g/dL (33.2-36.2); PLATELET COUNT 108 x10^3/uL (130-400); RED BLOOD COUNT 3.54 x10^6/uL (4.38-5.82); RED CELL DISTRIBUTION WIDTH 15.6 % (9.4-14.8)
[2020-04-09] MEDS: NOREPINEPHRINE 8 MG in SODIUM CHLORIDE 0.9% 242 ML IV PRN (05:47)
[2020-04-09 05:52] LABS: ALBUMIN 1.5 g/dL (3.4-5.0); ANION GAP 7 mmol/L (5-15); CALCIUM 7.6 mg/dL (8.5-10.1); CHLORIDE 106 mmol/L (98-107)
[2020-04-09 05:57] LABS: ALANINE AMINOTRANSFERASE 14 U/L (12-78); ALKALINE PHOSPHATASE 132 U/L (45-117); BILIRUBIN,TOTAL 1.5 mg/dL (0.2-1.0); CREATININE 5.42 mg/dL (0.7-1.3); TOTAL PROTEIN 6.4 g/dL (6.4-8.2)
[2020-04-09 06:10] LABS: BASOPHILS # (AUTO) 0.04 x10^3/uL (0-0.1); BASOPHILS % (AUTO) 0 % (0-1); EOSINOPHILS # (AUTO) 0.09 x10^3/uL (0-0.4); EOSINOPHILS % (AUTO) 1 % (1-7); LYMPHOCYTES # (AUTO) 0.47 x10^3/uL (1-3.4); LYMPHOCYTES % (AUTO) 4 % (22-44); MD SCAN; MONOCYTES # (AUTO) 0.26 x10^3/uL (0.2-0.8); MONOCYTES % (AUTO) 2 % (2-9); NEUTROPHILS % (AUTO) 93 % (42-75)
[2020-04-09] MEDS: MEROPENEM 1 GM in SODIUM CHLORIDE 0.9% 100 ML IV SCH ×2 (08:01→20:48)
[2020-04-09] MEDS: INSULIN LISPRO 100 UNITS/ML, PEN SQ-INSULIN SCH ×4 (08:01→22:52)
[2020-04-09] MEDS: ZINC SULFATE 220 MG CAPSULE PO SCH (08:02)
[2020-04-09] MEDS: CHOLECALCIFEROL 5,000u TAB PO SCH (08:02)
[2020-04-09] MEDS: MULTIVITS,STRESS FORMULA 1 TABLET PO SCH (08:02)
[2020-04-09] MEDS: THIAMINE 100MG TABLET PO SCH ×2 (08:02→20:49)
[2020-04-09] MEDS: INSULIN GLARGINE 100 UNITS/ML, PEN SQ-INSULIN SCH ×2 (08:02→21:03)
[2020-04-09] MEDS: SENNA/DOCUSATE TABLET PO SCH (08:02)
[2020-04-09] MEDS: HEPARIN 5,000 UNITS/ML, 1ML IV PRN ×2 (12:36→19:10)
[2020-04-09] MEDS: HEPARIN 25,000 UNITS/250ML PMX 250 ML IV PRN (19:11)
[2020-04-09] MEDS: FAMOTIDINE 20 MG/2 ML IVPush SCH (20:48)
[2020-04-10] MEDS: ALBUTEROL/IPRATROPIUM 2.5MG/0.5MG, 3 ML INLINE SCH ×6 (02:23→22:40)
[2020-04-10 04:02] LABS: INTERNATIONAL NORMALIZED RATIO 1.22 (0.93-1.1); PROTHROMBIN TIME 12.6 Seconds (9.6-11.5)
[2020-04-10 04:05] LABS: ALBUMIN 1.5 g/dL (3.4-5.0); ANION GAP 6 mmol/L (5-15); CALCIUM 7.9 mg/dL (8.5-10.1); CHLORIDE 104 mmol/L (98-107)
[2020-04-10 04:08] LABS: ALANINE AMINOTRANSFERASE 21 U/L (12-78); ALKALINE PHOSPHATASE 145 U/L (45-117); BILIRUBIN,TOTAL 1.4 mg/dL (0.2-1.0); CREATININE 4.35 mg/dL (0.7-1.3); TOTAL PROTEIN 6.3 g/dL (6.4-8.2)
[2020-04-10] MEDS: INSULIN LISPRO 100 UNITS/ML, PEN SQ-INSULIN SCH ×4 (04:13→23:25)
[2020-04-10 05:34] LABS: CLOSTRIDIUM DIFFICILE ANTIGEN NEGATIVE; CLOSTRIDIUM DIFFICILE TOXIN NEGATIVE (Negative)
[2020-04-10] MEDS: SENNA/DOCUSATE TABLET PO SCH (07:34)
[2020-04-10] MEDS: ZINC SULFATE 220 MG CAPSULE PO SCH (07:50)
[2020-04-10] MEDS: MULTIVITS,STRESS FORMULA 1 TABLET PO SCH (07:50)
[2020-04-10] MEDS: THIAMINE 100MG TABLET PO SCH ×2 (07:50→20:58)
[2020-04-10] MEDS: MEROPENEM 1 GM in SODIUM CHLORIDE 0.9% 100 ML IV SCH (07:51)
[2020-04-10] MEDS: CHOLECALCIFEROL 5,000u TAB PO SCH (07:51)
[2020-04-10] MEDS: INSULIN GLARGINE 100 UNITS/ML, PEN SQ-INSULIN SCH ×2 (07:58→21:10)
[2020-04-10] MEDS ORDERED: REMDESIVIR 50 MG in SODIUM CHLORIDE 0.9% 250 ML IVPB ONE (09:30)
[2020-04-10] MEDS: HEPARIN 5,000 UNITS/ML, 1ML IV PRN (10:09)
[2020-04-10] MEDS: MEROPENEM 500 MG in SODIUM CHLORIDE 0.9% 100 ML IVPB SCH (20:57)
[2020-04-10] MEDS: FAMOTIDINE 20 MG/2 ML IVPush SCH (20:58)
[2020-04-10] MEDS: HEPARIN 25,000 UNITS/250ML PMX 250 ML IV PRN (23:29)
[2020-04-11] MEDS: HEPARIN 5,000 UNITS/ML, 1ML IV PRN ×2 (01:26→08:19)
[2020-04-11] MEDS: ALBUTEROL/IPRATROPIUM 2.5MG/0.5MG, 3 ML INLINE SCH ×6 (02:33→22:43)
[2020-04-11] MEDS: INSULIN LISPRO 100 UNITS/ML, PEN SQ-INSULIN SCH ×4 (04:47→21:13)
[2020-04-11 05:12] LABS: ALBUMIN 1.5 g/dL (3.4-5.0); ANION GAP 9 mmol/L (5-15); CALCIUM 7.6 mg/dL (8.5-10.1); CHLORIDE 104 mmol/L (98-107)
[2020-04-11 05:15] LABS: ALANINE AMINOTRANSFERASE 22 U/L (12-78); ALKALINE PHOSPHATASE 147 U/L (45-117); BILIRUBIN,TOTAL 1.1 mg/dL (0.2-1.0); CREATININE 4.39 mg/dL (0.7-1.3); TOTAL PROTEIN 6.2 g/dL (6.4-8.2)
[2020-04-11 06:09] LABS: MEAN CORPUSCULAR HEMOGLOBIN 31.8 pg (27.5-34.5); MEAN CORPUSCULAR HGB CONC 33.3 g/dL (33.2-36.2); MEAN PLATELET VOLUME 7.7 fL (7.4-10.4); PLATELET COUNT 85 x10^3/uL (130-400); RED BLOOD COUNT 3.27 x10^6/uL (4.38-5.82); RED CELL DISTRIBUTION WIDTH 15.4 % (9.4-14.8)
[2020-04-11 06:10] LABS: MD YES
[2020-04-11 06:14] LABS: BAND#(MANUAL) 0.08 x10^3/uL; BANDS%(MANUAL) 1 % (0-7); LYMPH#(MANUAL) 0.86 x10^3/uL (1-3.4); LYMPHS% (MANUAL) 11 % (22-44); METAMYELOCYTES# (MANUAL) 0.23 x10^3/uL (0-0); METAMYELOCYTES% (MANUAL) 3 % (0-1); MONOS#(MANUAL) 0.39 x10^3/uL (0.3-2.7); MONOS% (MANUAL) 5 % (2-9); MYELOCYTES# (MANUAL) 0.16 x10^3/uL (0-0); MYELOCYTES% (MANUAL) 2 % (0-0); SEG#(MANUAL) 6.08 x10^3/uL (1.8-6.8); SEGS% (MANUAL) 78 % (42-75)
[2020-04-11 06:16] LABS: <PLATELET ESTIMATE> DECREASED; <PLT MORPHOLOGY> NORMAL PLT MORPH; POLYCHROMASIA 1+
[2020-04-11 06:17] LABS: BASOPHILLIC STIPPLING 1+
[2020-04-11 06:19] LABS: ANISOCYTOSIS 1+
[2020-04-11] MEDS: MEROPENEM 500 MG in SODIUM CHLORIDE 0.9% 100 ML IVPB SCH ×2 (08:19→21:04)
[2020-04-11] MEDS: SENNA/DOCUSATE TABLET PO SCH (08:46)
[2020-04-11 09:00] VITALS: BP 163/76
[2020-04-11] MEDS: ZINC SULFATE 220 MG CAPSULE PO SCH (09:30)
[2020-04-11] MEDS: THIAMINE 100MG TABLET PO SCH ×2 (09:30→21:04)
[2020-04-11] MEDS: CHOLECALCIFEROL 5,000u TAB PO SCH (09:30)
[2020-04-11] MEDS: MULTIVITS,STRESS FORMULA 1 TABLET PO SCH (09:30)
[2020-04-11] MEDS: INSULIN GLARGINE 100 UNITS/ML, PEN SQ-INSULIN SCH ×2 (09:31→21:13)
[2020-04-11] MEDS: ASCORBIC ACID 500 MG TABLET PO SCH ×2 (13:58→17:07)
[2020-04-11] MEDS: DEXAMETHASONE 4 MG/ML, 1ML IVPush SCH (13:59)
[2020-04-11] MEDS: HEPARIN 5,000 UNITS/ML, 1ML SQ SCH ×2 (13:59→23:54)
[2020-04-11] MEDS: FAMOTIDINE 20 MG/2 ML IVPush SCH (21:04)
[2020-04-12] MEDS: ALBUTEROL/IPRATROPIUM 2.5MG/0.5MG, 3 ML INLINE SCH ×6 (03:00→22:59)
[2020-04-12] MEDS: INSULIN LISPRO 100 UNITS/ML, PEN SQ-INSULIN SCH ×4 (04:00→20:04)
[2020-04-12 04:32] LABS: MEAN CORPUSCULAR HGB CONC 33.4 g/dL (33.2-36.2); RED BLOOD COUNT 3.47 x10^6/uL (4.38-5.82); RED CELL DISTRIBUTION WIDTH 15.8 % (9.4-14.8)
[2020-04-12 04:38] LABS: ANION GAP 9 mmol/L (5-15); CHLORIDE 102 mmol/L (98-107)
[2020-04-12 04:39] LABS: CALCIUM 7.7 mg/dL (8.5-10.1)
[2020-04-12 04:40] LABS: CREATININE 4.27 mg/dL (0.7-1.3)
[2020-04-12 06:06] LABS: MD YES; MEAN PLATELET VOLUME 7.6 fL (7.4-10.4); PLATELET COUNT 98 x10^3/uL (130-400)
[2020-04-12 06:08] LABS: ANISOCYTOSIS 1+; BANDS%(MANUAL) 4 % (0-7); EOS% (MANUAL) 3 % (1-7); LYMPH#(MANUAL) 1.58 x10^3/uL (1-3.4); LYMPHS% (MANUAL) 16 % (22-44); MONOS% (MANUAL) 4 % (2-9); SEG#(MANUAL) 7.23 x10^3/uL (1.8-6.8); SEGS% (MANUAL) 73 % (42-75)
[2020-04-12 06:09] LABS: <PLATELET ESTIMATE> DECREASED; <PLT MORPHOLOGY> NORMAL PLT MORPH; POLYCHROMASIA 1+
[2020-04-12] MEDS: HEPARIN 5,000 UNITS/ML, 1ML SQ SCH ×2 (08:15→15:54)
[2020-04-12] MEDS: MEROPENEM 500 MG in SODIUM CHLORIDE 0.9% 100 ML IVPB SCH ×2 (08:15→20:09)
[2020-04-12] MEDS: ASCORBIC ACID 500 MG TABLET PO SCH ×2 (08:15→16:37)
[2020-04-12] MEDS: DEXAMETHASONE 4 MG/ML, 1ML IVPush SCH (09:36)
[2020-04-12] MEDS: THIAMINE 100MG TABLET PO SCH ×2 (09:36→20:01)
[2020-04-12] MEDS: MULTIVITS,STRESS FORMULA 1 TABLET PO SCH (09:37)
[2020-04-12] MEDS: CHOLECALCIFEROL 5,000u TAB PO SCH (09:37)
[2020-04-12] MEDS: ZINC SULFATE 220 MG CAPSULE PO SCH (09:37)
[2020-04-12] MEDS: INSULIN GLARGINE 100 UNITS/ML, PEN SQ-INSULIN SCH ×2 (09:40→20:03)
[2020-04-12] MEDS: LABETALOL 5MG/ML, 20ML IVPush PRN (14:23)
[2020-04-12] MEDS ORDERED: SODIUM BICARB 8.4%, 50ML SYRINGE ONE (19:32)
[2020-04-12] MEDS ORDERED: SODIUM BICARBONATE 1 MEQ/ML, 50ML VIAL IVPush ONE ×2 (20:00)
[2020-04-12] MEDS: FAMOTIDINE 20 MG/2 ML IVPush SCH (20:04)
[2020-04-12] MEDS ORDERED: VECURONIUM 10 MG ONE (23:59)
[2020-04-13] MEDS ORDERED: VECURONIUM 10 MG IVPush ONE (00:30)
[2020-04-13] MEDS: HEPARIN 5,000 UNITS/ML, 1ML SQ SCH ×3 (01:30→16:36)
[2020-04-13] MEDS: ALBUTEROL/IPRATROPIUM 2.5MG/0.5MG, 3 ML INLINE SCH ×6 (03:01→22:43)
[2020-04-13] MEDS: INSULIN LISPRO 100 UNITS/ML, PEN SQ-INSULIN SCH ×4 (03:12→21:57)
[2020-04-13] MEDS: MEROPENEM 500 MG in SODIUM CHLORIDE 0.9% 100 ML IVPB SCH (07:57)
[2020-04-13 08:15] LABS: ANION GAP 10 mmol/L (5-15); CALCIUM 7.2 mg/dL (8.5-10.1); CHLORIDE 106 mmol/L (98-107); CREATININE 4.03 mg/dL (0.7-1.3)
[2020-04-13] MEDS: DEXAMETHASONE 4 MG/ML, 1ML IVPush SCH (08:41)
[2020-04-13] MEDS: ZINC SULFATE 220 MG CAPSULE PO SCH (08:42)
[2020-04-13] MEDS: ASCORBIC ACID 500 MG TABLET PO SCH ×2 (08:42→16:35)
[2020-04-13] MEDS: THIAMINE 100MG TABLET PO SCH ×2 (08:42→21:55)
[2020-04-13] MEDS: CHOLECALCIFEROL 5,000u TAB PO SCH (08:42)
[2020-04-13] MEDS: MULTIVITS,STRESS FORMULA 1 TABLET PO SCH (08:42)
[2020-04-13 08:49] LABS: MEAN CORPUSCULAR HGB CONC 33.5 g/dL (33.2-36.2); RED BLOOD COUNT 3.29 x10^6/uL (4.38-5.82); RED CELL DISTRIBUTION WIDTH 15.6 % (9.4-14.8)
[2020-04-13] MEDS ORDERED: PHARMACY MAY ADJ FOR RENAL FX MC SCH (09:30)
[2020-04-13] MEDS ORDERED: DEXTROSE 4 GM TAB.CHEW PO PRN (09:30)
[2020-04-13] MEDS ORDERED: SENNA/DOCUSATE TABLET NG PRN (09:30)
[2020-04-13] MEDS ORDERED: LACTULOSE 20 GM/30 ML UDC NG PRN (09:30)
[2020-04-13] MEDS ORDERED: GLUCAGON 1 MG IM PRN (09:30)
[2020-04-13] MEDS: SODIUM CHLORIDE FLUSH 10ML SYR IVF SCH ×2 (09:30→21:55)
[2020-04-13 09:55] LABS: PLATELET COUNT 75 x10^3/uL (130-400)
[2020-04-13 09:56] LABS: MD YES
[2020-04-13 10:00] LABS: <PLATELET ESTIMATE> DECREASED; ANISOCYTOSIS 1+; BAND#(MANUAL) 0.34 x10^3/uL; BANDS%(MANUAL) 3 % (0-7); LYMPH#(MANUAL) 1.24 x10^3/uL (1-3.4); LYMPHS% (MANUAL) 11 % (22-44); METAMYELOCYTES# (MANUAL) 0.34 x10^3/uL (0-0); METAMYELOCYTES% (MANUAL) 3 % (0-1); MONOS#(MANUAL) 0.57 x10^3/uL (0.3-2.7); MONOS% (MANUAL) 5 % (2-9); MYELOCYTES# (MANUAL) 0.11 x10^3/uL (0-0); MYELOCYTES% (MANUAL) 1 % (0-0); SEGS% (MANUAL) 77 % (42-75)
[2020-04-13 10:01] LABS: <PLT MORPHOLOGY> NORMAL PLT MORPH; POLYCHROMASIA 1+
[2020-04-13] MEDS: INSULIN GLARGINE 100 UNITS/ML, PEN SQ-INSULIN SCH ×2 (10:45→21:56)
[2020-04-13] MEDS ORDERED: LABETALOL 5MG/ML, 20ML IVPush PRN (12:30)
[2020-04-13] MEDS: FAMOTIDINE 20 MG/2 ML IVPush SCH (21:55)
[2020-04-14] MEDS: HEPARIN 5,000 UNITS/ML, 1ML SQ SCH ×4 (00:16→23:53)
[2020-04-14] MEDS: ALBUTEROL/IPRATROPIUM 2.5MG/0.5MG, 3 ML INLINE SCH ×6 (02:59→22:31)
[2020-04-14] MEDS: INSULIN LISPRO 100 UNITS/ML, PEN SQ-INSULIN SCH ×4 (04:35→21:34)
[2020-04-14 04:44] VITALS: BP 158/72
[2020-04-14 05:11] LABS: ANION GAP 9 mmol/L (5-15); CALCIUM 7.6 mg/dL (8.5-10.1); CHLORIDE 104 mmol/L (98-107); CREATININE 3.65 mg/dL (0.7-1.3)
[2020-04-14 05:48] LABS: MD YES; MEAN CORPUSCULAR HEMOGLOBIN 32.2 pg (27.5-34.5); MEAN CORPUSCULAR HGB CONC 33.6 g/dL (33.2-36.2); MEAN PLATELET VOLUME 8.5 fL (7.4-10.4); PLATELET COUNT 84 x10^3/uL (130-400); RED BLOOD COUNT 3.24 x10^6/uL (4.38-5.82); RED CELL DISTRIBUTION WIDTH 15.4 % (9.4-14.8)
[2020-04-14 05:54] LABS: <PLATELET ESTIMATE> DECREASED; <PLT MORPHOLOGY> NORMAL PLT MORPH; ANISOCYTOSIS 1+; BANDS%(MANUAL) 2 % (0-7); BASOS% (MANUAL) 1 % (0-1); EOS% (MANUAL) 1 % (1-7); LYMPH#(MANUAL) 0.61 x10^3/uL (1-3.4); LYMPHS% (MANUAL) 6 % (22-44); METAMYELOCYTES% (MANUAL) 1 % (0-1); MONOS% (MANUAL) 2 % (2-9); POLYCHROMASIA 1+; SEG#(MANUAL) 8.87 x10^3/uL (1.8-6.8); SEGS% (MANUAL) 87 % (42-75)
[2020-04-14] MEDS: LABETALOL 5MG/ML, 20ML IVPush PRN (06:12)
[2020-04-14] MEDS: MULTIVITS,STRESS FORMULA 1 TABLET PO SCH (08:59)
[2020-04-14] MEDS: ASCORBIC ACID 500 MG TABLET PO SCH ×2 (08:59→16:16)
[2020-04-14] MEDS: ZINC SULFATE 220 MG CAPSULE PO SCH (08:59)
[2020-04-14] MEDS: CHOLECALCIFEROL 5,000u TAB PO SCH (09:00)
[2020-04-14] MEDS: THIAMINE 100MG TABLET PO SCH ×2 (09:00→21:31)
[2020-04-14] MEDS: DEXAMETHASONE INTENSOL 1 MG/ML ORAL SOL JT SCH (09:01)
[2020-04-14] MEDS: SODIUM CHLORIDE FLUSH 10ML SYR IVF SCH ×2 (09:01→21:00)
[2020-04-14] MEDS: INSULIN GLARGINE 100 UNITS/ML, PEN SQ-INSULIN SCH ×2 (10:28→21:33)
[2020-04-14] MEDS: FAMOTIDINE 20 MG/2 ML IVPush SCH (21:31)
[2020-04-15] MEDS: ALBUTEROL/IPRATROPIUM 2.5MG/0.5MG, 3 ML INLINE SCH ×6 (02:34→23:30)
[2020-04-15] MEDS: LABETALOL 5MG/ML, 20ML IVPush PRN (03:35)
[2020-04-15] MEDS: INSULIN LISPRO 100 UNITS/ML, PEN SQ-INSULIN SCH ×4 (04:25→21:16)
[2020-04-15 04:52] LABS: ANION GAP 11 mmol/L (5-15); BASOPHILS # (AUTO) 0.01 x10^3/uL (0-0.1); BASOPHILS % (AUTO) 0 % (0-1); CALCIUM 7.6 mg/dL (8.5-10.1); CHLORIDE 106 mmol/L (98-107); EOSINOPHILS # (AUTO) 0.29 x10^3/uL (0-0.4); EOSINOPHILS % (AUTO) 3 % (1-7); LYMPHOCYTES # (AUTO) 0.97 x10^3/uL (1-3.4); LYMPHOCYTES % (AUTO) 10 % (22-44); MD NO; MEAN CORPUSCULAR HEMOGLOBIN 32.3 pg (27.5-34.5); MEAN CORPUSCULAR HGB CONC 33.7 g/dL (33.2-36.2); MEAN PLATELET VOLUME 8.4 fL (7.4-10.4); MONOCYTES # (AUTO) 0.28 x10^3/uL (0.2-0.8); MONOCYTES % (AUTO) 3 % (2-9); NEUTROPHILS % (AUTO) 84 % (42-75); PLATELET COUNT 103 x10^3/uL (130-400); RED BLOOD COUNT 3.06 x10^6/uL (4.38-5.82); RED CELL DISTRIBUTION WIDTH 15.2 % (9.4-14.8)
[2020-04-15 04:53] LABS: CREATININE 4.86 mg/dL (0.7-1.3)
[2020-04-15 05:00] VITALS: BP 156/66
[2020-04-15] MEDS: ASCORBIC ACID 500 MG TABLET PO SCH ×2 (08:03→16:08)
[2020-04-15] MEDS: DEXAMETHASONE INTENSOL 1 MG/ML ORAL SOL JT SCH (08:03)
[2020-04-15] MEDS: MULTIVITS,STRESS FORMULA 1 TABLET PO SCH (08:03)
[2020-04-15] MEDS: ZINC SULFATE 220 MG CAPSULE PO SCH (08:03)
[2020-04-15] MEDS: CHOLECALCIFEROL 5,000u TAB PO SCH (08:04)
[2020-04-15] MEDS: HEPARIN 5,000 UNITS/ML, 1ML SQ SCH ×2 (08:04→16:08)
[2020-04-15] MEDS: THIAMINE 100MG TABLET PO SCH ×2 (08:04→21:15)
[2020-04-15] MEDS: SODIUM CHLORIDE FLUSH 10ML SYR IVF SCH ×2 (08:05→21:15)
[2020-04-15] MEDS: DOXAZOSIN 2MG TABLET PO SCH (10:46)
[2020-04-15] MEDS: INSULIN GLARGINE 100 UNITS/ML, PEN SQ-INSULIN SCH ×2 (13:02→21:17)
[2020-04-15] MEDS: FAMOTIDINE 20 MG/2 ML IVPush SCH (21:15)
[2020-04-16] MEDS: HEPARIN 5,000 UNITS/ML, 1ML SQ SCH ×3 (01:11→16:46)
[2020-04-16] MEDS: ALBUTEROL/IPRATROPIUM 2.5MG/0.5MG, 3 ML INLINE SCH ×6 (03:30→23:30)
[2020-04-16 04:32] LABS: BASOPHILS % (AUTO) 1 % (0-1); EOSINOPHILS % (AUTO) 5 % (1-7); LYMPHOCYTES % (AUTO) 11 % (22-44); MEAN CORPUSCULAR HGB CONC 33.1 g/dL (33.2-36.2); MEAN PLATELET VOLUME 8.9 fL (7.4-10.4); MONOCYTES % (AUTO) 4 % (2-9); NEUTROPHILS % (AUTO) 80 % (42-75); PLATELET COUNT 106 x10^3/uL (130-400); RED BLOOD COUNT 2.67 x10^6/uL (4.38-5.82); RED CELL DISTRIBUTION WIDTH 15.2 % (9.4-14.8)
[2020-04-16 04:41] LABS: ANION GAP 10 mmol/L (5-15); CALCIUM 7.2 mg/dL (8.5-10.1); CHLORIDE 104 mmol/L (98-107); CREATININE 4.92 mg/dL (0.7-1.3); TRIGLYCERIDES 228 mg/dL (50-200)
[2020-04-16] MEDS: INSULIN LISPRO 100 UNITS/ML, PEN SQ-INSULIN SCH ×4 (04:59→23:00)
[2020-04-16 05:00] LABS: MD SCAN
[2020-04-16 05:25] VITALS: BP 130/60
[2020-04-16] MEDS: SODIUM CHLORIDE FLUSH 10ML SYR IVF SCH ×2 (09:00→20:50)
[2020-04-16] MEDS: CHOLECALCIFEROL 5,000u TAB PO SCH (09:00)
[2020-04-16] MEDS: THIAMINE 100MG TABLET PO SCH ×2 (09:34→20:49)
[2020-04-16] MEDS: DOXAZOSIN 2MG TABLET PO SCH (09:34)
[2020-04-16] MEDS: ASCORBIC ACID 500 MG TABLET PO SCH ×2 (09:35→16:46)
[2020-04-16] MEDS: MULTIVITS,STRESS FORMULA 1 TABLET PO SCH (09:35)
[2020-04-16] MEDS: ZINC SULFATE 220 MG CAPSULE PO SCH (09:35)
[2020-04-16] MEDS: INSULIN GLARGINE 100 UNITS/ML, PEN SQ-INSULIN SCH ×2 (09:41→20:52)
[2020-04-16] MEDS ORDERED: ALBUMIN HUMAN 25% 50 ML IV PRN (10:30)
[2020-04-16] MEDS: FAMOTIDINE 20 MG/2 ML IVPush SCH (20:50)
[2020-04-17] MEDS: HEPARIN 5,000 UNITS/ML, 1ML SQ SCH ×3 (00:39→16:33)
[2020-04-17] MEDS: ALBUTEROL/IPRATROPIUM 2.5MG/0.5MG, 3 ML INLINE SCH ×6 (03:30→22:33)
[2020-04-17] MEDS: INSULIN LISPRO 100 UNITS/ML, PEN SQ-INSULIN SCH ×4 (04:12→22:59)
[2020-04-17] MEDS: DEXTROSE 50%, 50ML SYRINGE IVPush PRN (04:19)
[2020-04-17 04:35] LABS: ANION GAP 12 mmol/L (5-15); CALCIUM 7.2 mg/dL (8.5-10.1); CHLORIDE 104 mmol/L (98-107); CREATININE 5.78 mg/dL (0.7-1.3)
[2020-04-17 04:40] LABS: BASOPHILS % (AUTO) 1 % (0-1); EOSINOPHILS % (AUTO) 4 % (1-7); LYMPHOCYTES % (AUTO) 12 % (22-44); MEAN CORPUSCULAR HEMOGLOBIN 32.4 pg (27.5-34.5); MEAN CORPUSCULAR HGB CONC 33.6 g/dL (33.2-36.2); MEAN PLATELET VOLUME 8.3 fL (7.4-10.4); MONOCYTES % (AUTO) 5 % (2-9); NEUTROPHILS % (AUTO) 78 % (42-75); PLATELET COUNT 139 x10^3/uL (130-400); RED BLOOD COUNT 2.61 x10^6/uL (4.38-5.82); RED CELL DISTRIBUTION WIDTH 15.2 % (9.4-14.8)
[2020-04-17 05:30] VITALS: BP 140/60
[2020-04-17 05:48] LABS: MD SCAN
[2020-04-17] MEDS ORDERED: SODIUM POLYSTYRENE SULFONATE ORAL SUSP PR ONE (06:30)
[2020-04-17] MEDS ORDERED: SODIUM POLYSTYRENE SULFONATE ORAL SUSP PO ONE (07:00)
[2020-04-17] MEDS: CHOLECALCIFEROL 5,000u TAB PO SCH (08:15)
[2020-04-17] MEDS: THIAMINE 100MG TABLET PO SCH ×2 (08:16→20:59)
[2020-04-17] MEDS: ASCORBIC ACID 500 MG TABLET PO SCH ×2 (08:16→16:36)
[2020-04-17] MEDS: MULTIVITS,STRESS FORMULA 1 TABLET PO SCH (08:16)
[2020-04-17] MEDS: ZINC SULFATE 220 MG CAPSULE PO SCH (08:17)
[2020-04-17] MEDS: INSULIN GLARGINE 100 UNITS/ML, PEN SQ-INSULIN SCH ×2 (08:36→20:59)
[2020-04-17] MEDS: DOXAZOSIN 2MG TABLET PO SCH (08:36)
[2020-04-17] MEDS: SODIUM CHLORIDE FLUSH 10ML SYR IVF SCH ×2 (08:37→21:00)
[2020-04-17] MEDS: ALBUMIN HUMAN 25% 100 ML IV PRN ×2 (13:37→14:32)
[2020-04-17] MEDS: FAMOTIDINE 20 MG/2 ML IVPush SCH (20:59)
[2020-04-18] MEDS: HEPARIN 5,000 UNITS/ML, 1ML SQ SCH ×4 (01:00→23:38)
[2020-04-18] MEDS: ALBUTEROL/IPRATROPIUM 2.5MG/0.5MG, 3 ML INLINE SCH ×6 (03:15→22:21)
[2020-04-18 04:00] VITALS: BP 142/58
[2020-04-18] MEDS: INSULIN LISPRO 100 UNITS/ML, PEN SQ-INSULIN SCH ×4 (05:09→23:38)
[2020-04-18 05:33] LABS: BASOPHILS % (AUTO) 1 % (0-1); EOSINOPHILS % (AUTO) 4 % (1-7); LYMPHOCYTES % (AUTO) 8 % (22-44); MEAN CORPUSCULAR HEMOGLOBIN 32.1 pg (27.5-34.5); MEAN PLATELET VOLUME 8.2 fL (7.4-10.4); MONOCYTES % (AUTO) 6 % (2-9); NEUTROPHILS % (AUTO) 82 % (42-75); PLATELET COUNT 143 x10^3/uL (130-400); RED BLOOD COUNT 2.48 x10^6/uL (4.38-5.82); RED CELL DISTRIBUTION WIDTH 15.2 % (9.4-14.8)
[2020-04-18 05:36] LABS: ANION GAP 11 mmol/L (5-15); CALCIUM 7.1 mg/dL (8.5-10.1); CHLORIDE 97 mmol/L (98-107)
[2020-04-18 05:38] LABS: CREATININE 4.53 mg/dL (0.7-1.3)
[2020-04-18 07:02] LABS: MD SCAN
[2020-04-18] MEDS: ZINC SULFATE 220 MG CAPSULE PO SCH (08:09)
[2020-04-18] MEDS: MULTIVITS,STRESS FORMULA 1 TABLET PO SCH (08:09)
[2020-04-18] MEDS: CHOLECALCIFEROL 5,000u TAB PO SCH (08:09)
[2020-04-18] MEDS: THIAMINE 100MG TABLET PO SCH ×2 (08:10→21:19)
[2020-04-18] MEDS: ASCORBIC ACID 500 MG TABLET PO SCH ×2 (08:10→17:02)
[2020-04-18] MEDS: SODIUM CHLORIDE FLUSH 10ML SYR IVF SCH ×2 (08:12→21:20)
[2020-04-18] MEDS: DOXAZOSIN 2MG TABLET PO SCH (08:13)
[2020-04-18] MEDS: INSULIN GLARGINE 100 UNITS/ML, PEN SQ-INSULIN SCH ×2 (08:20→21:20)
[2020-04-18] MEDS ORDERED: NOREPINEPHRINE 1 MG/ML, 4ML ONE (10:49)
[2020-04-18] MEDS ORDERED: NOREPINEPHRINE 8 MG in SODIUM CHLORIDE 0.9% 242 ML IV ONE (11:00)
[2020-04-18] MEDS ORDERED: ALBUMIN HUMAN 25% 50 ML IV PRN (12:00)
[2020-04-18] MEDS: FAMOTIDINE 20 MG/2 ML IVPush SCH (21:19)
[2020-04-19] MEDS: ALBUTEROL/IPRATROPIUM 2.5MG/0.5MG, 3 ML INLINE SCH ×6 (02:25→22:35)
[2020-04-19] MEDS: INSULIN LISPRO 100 UNITS/ML, PEN SQ-INSULIN SCH ×4 (04:37→20:23)
[2020-04-19 05:00] VITALS: BP 132/59
[2020-04-19 05:07] LABS: BASOPHILS % (AUTO) 1 % (0-1); EOSINOPHILS % (AUTO) 5 % (1-7); LYMPHOCYTES % (AUTO) 10 % (22-44); MEAN CORPUSCULAR HEMOGLOBIN 32.6 pg (27.5-34.5); MEAN CORPUSCULAR HGB CONC 33.8 g/dL (33.2-36.2); MEAN PLATELET VOLUME 7.9 fL (7.4-10.4); MONOCYTES % (AUTO) 5 % (2-9); NEUTROPHILS % (AUTO) 80 % (42-75); PLATELET COUNT 160 x10^3/uL (130-400); RED BLOOD COUNT 2.38 x10^6/uL (4.38-5.82); RED CELL DISTRIBUTION WIDTH 14.9 % (9.4-14.8)
[2020-04-19 05:18] LABS: ANION GAP 10 mmol/L (5-15); CALCIUM 7.4 mg/dL (8.5-10.1); CHLORIDE 94 mmol/L (98-107); TRIGLYCERIDES 113 mg/dL (50-200)
[2020-04-19 05:51] LABS: MD SCAN
[2020-04-19] MEDS: THIAMINE 100MG TABLET PO SCH ×2 (08:34→20:21)
[2020-04-19] MEDS: CHOLECALCIFEROL 5,000u TAB PO SCH (08:34)
[2020-04-19] MEDS: MULTIVITS,STRESS FORMULA 1 TABLET PO SCH (08:34)
[2020-04-19] MEDS: DOXAZOSIN 2MG TABLET PO SCH (08:34)
[2020-04-19] MEDS: ASCORBIC ACID 500 MG TABLET PO SCH ×2 (08:34→16:19)
[2020-04-19] MEDS: INSULIN GLARGINE 100 UNITS/ML, PEN SQ-INSULIN SCH ×2 (08:35→20:22)
[2020-04-19] MEDS: HEPARIN 5,000 UNITS/ML, 1ML SQ SCH ×3 (08:35→23:43)
[2020-04-19] MEDS: ZINC SULFATE 220 MG CAPSULE PO SCH (08:37)
[2020-04-19] MEDS: SODIUM CHLORIDE FLUSH 10ML SYR IVF SCH ×2 (08:40→20:21)
--- NOTE | 2020-04-19 10:47 | NUR ---
04/19-TF GOAL: NEPRO @ 50ML/HR
[2020-04-19] MEDS: FAMOTIDINE 20 MG/2 ML IVPush SCH (20:22)
[2020-04-20] MEDS: ALBUTEROL/IPRATROPIUM 2.5MG/0.5MG, 3 ML INLINE SCH ×6 (02:50→22:05)
[2020-04-20] MEDS: INSULIN LISPRO 100 UNITS/ML, PEN SQ-INSULIN SCH ×4 (04:38→21:15)
[2020-04-20 04:39] VITALS: BP 145/72
[2020-04-20 05:25] LABS: BASOPHILS % (AUTO) 1 % (0-1); EOSINOPHILS % (AUTO) 3 % (1-7); LYMPHOCYTES % (AUTO) 9 % (22-44); MEAN CORPUSCULAR HEMOGLOBIN 32.7 pg (27.5-34.5); MEAN CORPUSCULAR HGB CONC 33.9 g/dL (33.2-36.2); MONOCYTES % (AUTO) 6 % (2-9); NEUTROPHILS % (AUTO) 82 % (42-75); PLATELET COUNT 201 x10^3/uL (130-400); RED BLOOD COUNT 2.38 x10^6/uL (4.38-5.82); RED CELL DISTRIBUTION WIDTH 15.1 % (9.4-14.8)
[2020-04-20 05:32] LABS: ANION GAP 11 mmol/L (5-15); CALCIUM 7.6 mg/dL (8.5-10.1); CHLORIDE 94 mmol/L (98-107); CREATININE 5.06 mg/dL (0.7-1.3)
[2020-04-20 06:10] LABS: MD SCAN
[2020-04-20] MEDS: ASCORBIC ACID 500 MG TABLET PO SCH ×2 (08:26→16:58)
[2020-04-20] MEDS: ZINC SULFATE 220 MG CAPSULE PO SCH (08:26)
[2020-04-20] MEDS: THIAMINE 100MG TABLET PO SCH ×2 (08:26→21:13)
[2020-04-20] MEDS: HEPARIN 5,000 UNITS/ML, 1ML SQ SCH ×2 (08:26→16:59)
[2020-04-20] MEDS: MULTIVITS,STRESS FORMULA 1 TABLET PO SCH (08:26)
[2020-04-20] MEDS: DOXAZOSIN 2MG TABLET PO SCH (08:27)
[2020-04-20] MEDS: SODIUM CHLORIDE FLUSH 10ML SYR IVF SCH ×2 (08:27→21:13)
[2020-04-20] MEDS: CHOLECALCIFEROL 5,000u TAB PO SCH (08:27)
[2020-04-20] MEDS: INSULIN GLARGINE 100 UNITS/ML, PEN SQ-INSULIN SCH ×2 (08:28→21:14)
[2020-04-20] MEDS: ALBUMIN HUMAN 25% 100 ML IV PRN ×3 (11:13→11:20)
[2020-04-20] MEDS: FAMOTIDINE 20 MG/2 ML IVPush SCH (21:13)
[2020-04-21] MEDS: HEPARIN 5,000 UNITS/ML, 1ML SQ SCH ×4 (00:09→23:43)
[2020-04-21] MEDS: ALBUTEROL/IPRATROPIUM 2.5MG/0.5MG, 3 ML INLINE SCH ×6 (02:10→23:15)
[2020-04-21 03:53] VITALS: BP 154/72
[2020-04-21] MEDS: INSULIN LISPRO 100 UNITS/ML, PEN SQ-INSULIN SCH ×4 (03:53→21:09)
[2020-04-21 04:24] LABS: BASOPHILS % (AUTO) 1 % (0-1); EOSINOPHILS % (AUTO) 3 % (1-7); LYMPHOCYTES % (AUTO) 7 % (22-44); MEAN CORPUSCULAR HEMOGLOBIN 32.9 pg (27.5-34.5); MEAN PLATELET VOLUME 7.6 fL (7.4-10.4); MONOCYTES % (AUTO) 6 % (2-9); NEUTROPHILS % (AUTO) 84 % (42-75); PLATELET COUNT 226 x10^3/uL (130-400); RED BLOOD COUNT 2.31 x10^6/uL (4.38-5.82); RED CELL DISTRIBUTION WIDTH 14.8 % (9.4-14.8)
[2020-04-21 04:32] LABS: ANION GAP 7 mmol/L (5-15); CALCIUM 8.2 mg/dL (8.5-10.1); CHLORIDE 96 mmol/L (98-107); CREATININE 4.12 mg/dL (0.7-1.3)
[2020-04-21 06:22] LABS: MD MORPH REVIEW ONLY
[2020-04-21 06:23] LABS: ANISOCYTOSIS 1+; BASOPHILLIC STIPPLING 1+; POLYCHROMASIA 1+
[2020-04-21 06:24] LABS: <PLATELET ESTIMATE> ADEQUATE; <PLT MORPHOLOGY> NORMAL PLT MORPH
[2020-04-21] MEDS: ZINC SULFATE 220 MG CAPSULE PO SCH (07:58)
[2020-04-21] MEDS: DOXAZOSIN 2MG TABLET PO SCH (07:58)
[2020-04-21] MEDS: ASCORBIC ACID 500 MG TABLET PO SCH ×2 (07:59→15:39)
[2020-04-21] MEDS: THIAMINE 100MG TABLET PO SCH ×2 (07:59→21:10)
[2020-04-21] MEDS: MULTIVITS,STRESS FORMULA 1 TABLET PO SCH (07:59)
[2020-04-21] MEDS: CHOLECALCIFEROL 5,000u TAB PO SCH (08:00)
[2020-04-21] MEDS: SODIUM CHLORIDE FLUSH 10ML SYR IVF SCH ×2 (08:01→21:00)
[2020-04-21] MEDS: INSULIN GLARGINE 100 UNITS/ML, PEN SQ-INSULIN SCH ×2 (09:58→21:11)
[2020-04-21] MEDS: FAMOTIDINE 20 MG/2 ML IVPush SCH (21:10)
[2020-04-22] MEDS: ALBUTEROL/IPRATROPIUM 2.5MG/0.5MG, 3 ML INLINE SCH ×7 (02:11→23:02)
[2020-04-22 04:59] LABS: ANION GAP 11 mmol/L (5-15); CALCIUM 8.5 mg/dL (8.5-10.1); CHLORIDE 95 mmol/L (98-107)
[2020-04-22] MEDS: INSULIN LISPRO 100 UNITS/ML, PEN SQ-INSULIN SCH ×4 (05:00→22:45)
[2020-04-22 05:01] LABS: CREATININE 5.58 mg/dL (0.7-1.3); TRIGLYCERIDES 133 mg/dL (50-200)
[2020-04-22 05:08] VITALS: BP 114/62
[2020-04-22 05:17] LABS: MEAN CORPUSCULAR HEMOGLOBIN 32.5 pg (27.5-34.5); MEAN CORPUSCULAR HGB CONC 33.3 g/dL (33.2-36.2); MEAN PLATELET VOLUME 7.7 fL (7.4-10.4); PLATELET COUNT 247 x10^3/uL (130-400); RED BLOOD COUNT 2.28 x10^6/uL (4.38-5.82); RED CELL DISTRIBUTION WIDTH 14.9 % (9.4-14.8)
[2020-04-22 06:20] LABS: MD YES
[2020-04-22 06:21] LABS: BAND#(MANUAL) 0.35 x10^3/uL; BANDS%(MANUAL) 3 % (0-7); METAMYELOCYTES# (MANUAL) 0.23 x10^3/uL (0-0); METAMYELOCYTES% (MANUAL) 2 % (0-1); MYELOCYTES# (MANUAL) 0.12 x10^3/uL (0-0); MYELOCYTES% (MANUAL) 1 % (0-0); SEG#(MANUAL) 9.78 x10^3/uL (1.8-6.8); SEGS% (MANUAL) 85 % (42-75)
[2020-04-22 06:22] LABS: ANISOCYTOSIS 1+; BASOPHILLIC STIPPLING 1+; LYMPH#(MANUAL) 0.46 x10^3/uL (1-3.4); LYMPHS% (MANUAL) 4 % (22-44); MONOS#(MANUAL) 0.58 x10^3/uL (0.3-2.7); MONOS% (MANUAL) 5 % (2-9); POLYCHROMASIA 1+
[2020-04-22 06:24] LABS: <PLATELET ESTIMATE> ADEQUATE; <PLT MORPHOLOGY> NORMAL PLT MORPH
[2020-04-22 06:25] LABS: TEAR DROPS 1+
[2020-04-22] MEDS: CHOLECALCIFEROL 5,000u TAB PO SCH (08:29)
[2020-04-22] MEDS: THIAMINE 100MG TABLET PO SCH ×2 (08:29→22:05)
[2020-04-22] MEDS: ASCORBIC ACID 500 MG TABLET PO SCH ×2 (08:29→16:45)
[2020-04-22] MEDS: ZINC SULFATE 220 MG CAPSULE PO SCH (08:30)
[2020-04-22] MEDS: MULTIVITS,STRESS FORMULA 1 TABLET PO SCH (08:30)
[2020-04-22] MEDS: INSULIN GLARGINE 100 UNITS/ML, PEN SQ-INSULIN SCH ×2 (08:34→22:22)
[2020-04-22] MEDS: SODIUM CHLORIDE FLUSH 10ML SYR IVF SCH ×2 (08:34→21:00)
[2020-04-22] MEDS: HEPARIN 5,000 UNITS/ML, 1ML SQ SCH ×2 (08:34→16:45)
[2020-04-22] MEDS: DOXAZOSIN 2MG TABLET PO SCH (08:35)
[2020-04-22] MEDS ORDERED: SODIUM BICARBONATE 1 MEQ/ML, 50ML VIAL IVPush ONE (10:30)
[2020-04-22] MEDS: CIPROFLOXACIN OPHTH SOLN 0.3%, 5ML EACHEYE SCH ×2 (14:56→22:05)
[2020-04-22] MEDS: DIPHENOXYLATE/ATROPINE ORAL SOL PO SCH ×2 (16:45→22:32)
[2020-04-22] MEDS ORDERED: NOREPINEPHRINE 1 MG/ML, 4ML ONE ×2 (17:53)
[2020-04-22] MEDS ORDERED: FUROSEMIDE 40 MG/4 ML IV ONE (18:00)
[2020-04-22] MEDS ORDERED: PHARMACOKINETIC MONITORING MC PRN (18:30)
[2020-04-22] MEDS ORDERED: SODIUM CHLORIDE 0.9%, 500ML IVBOLUS ONE (18:30)
[2020-04-22] MEDS ORDERED: VANCOMYCIN IV SCH (18:30)
[2020-04-22] MEDS ORDERED: VANCOMYCIN 1,600 MG in SODIUM CHLORIDE 0.9% 250 ML IV ONE (18:30)
[2020-04-22] MEDS ORDERED: SODIUM CHLORIDE 0.9% 1,000ML IVBOLUS ONE (18:30)
[2020-04-22] MEDS ORDERED: VANCOMYCIN PER PHARMACY MC PRN (18:30)
[2020-04-22] MEDS ORDERED: SODIUM CHLORIDE 0.9% IV SCH (18:30)
[2020-04-22] MEDS ORDERED: PHARMACOKINETIC CONSULTATION MC ONE (18:30)
[2020-04-22] MEDS ORDERED: FENTANYL PF 1,000 MCG in SODIUM CHLORIDE 0.9% 80 ML IV PRN (19:00)
[2020-04-22] MEDS ORDERED: VECURONIUM 10 MG IVPush ONE (19:00)
[2020-04-22] MEDS: FENTANYL PF 1,000 MCG in SODIUM CHLORIDE 0.9% 80 ML IV PRN (19:32)
[2020-04-22] MEDS: PIPERACILLIN/TAZO/PMX 2.25GM 50 ML IVPB SCH (19:33)
[2020-04-22] MEDS: PROPOFOL 100 ML IV PRN (19:33)
[2020-04-22] MEDS: NOREPINEPHRINE 8 MG in SODIUM CHLORIDE 0.9% 242 ML IV PRN ×2 (19:33→20:21)
[2020-04-22] MEDS: VECURONIUM 50 MG in SODIUM CHLORIDE 0.9% 50 ML IV PRN (19:42)
[2020-04-22] MEDS: FAMOTIDINE 20 MG/2 ML IVPush SCH (22:06)
[2020-04-22] MEDS: ARTIFICIAL TEARS OINT 3.5 GM EACHEYE SCH (22:46)
[2020-04-23] MEDS: PIPERACILLIN/TAZO/PMX 2.25GM 50 ML IVPB SCH ×5 (00:02→23:58)
[2020-04-23] MEDS: HEPARIN 5,000 UNITS/ML, 1ML SQ SCH ×4 (00:03→23:04)
[2020-04-23] MEDS: VECURONIUM 50 MG in SODIUM CHLORIDE 0.9% 50 ML IV PRN (01:16)
[2020-04-23] MEDS: CIPROFLOXACIN OPHTH SOLN 0.3%, 5ML EACHEYE SCH ×4 (02:33→21:41)
[2020-04-23] MEDS: ARTIFICIAL TEARS OINT 3.5 GM EACHEYE SCH ×6 (02:33→22:09)
[2020-04-23] MEDS: NOREPINEPHRINE 8 MG in SODIUM CHLORIDE 0.9% 242 ML IV PRN ×4 (02:34→23:03)
[2020-04-23] MEDS: PROPOFOL 100 ML IV PRN ×3 (02:34→21:51)
[2020-04-23] MEDS: INSULIN LISPRO 100 UNITS/ML, PEN SQ-INSULIN SCH ×4 (04:15→22:08)
[2020-04-23 05:17] LABS: MEAN CORPUSCULAR HEMOGLOBIN 32.3 pg (27.5-34.5); MEAN PLATELET VOLUME 7.5 fL (7.4-10.4); PLATELET COUNT 262 x10^3/uL (130-400); RED BLOOD COUNT 2.17 x10^6/uL (4.38-5.82); RED CELL DISTRIBUTION WIDTH 14.8 % (9.4-14.8)
[2020-04-23 05:22] LABS: ALBUMIN 2.2 g/dL (3.4-5.0); ANION GAP 12 mmol/L (5-15); CALCIUM 7.9 mg/dL (8.5-10.1); CHLORIDE 95 mmol/L (98-107)
[2020-04-23 05:26] LABS: ALANINE AMINOTRANSFERASE 20 U/L (12-78); ALKALINE PHOSPHATASE 70 U/L (45-117); BILIRUBIN,TOTAL 0.5 mg/dL (0.2-1.0); CREATININE 6.74 mg/dL (0.7-1.3); TOTAL PROTEIN 7.1 g/dL (6.4-8.2)
[2020-04-23 05:54] VITALS: BP 110/55
[2020-04-23 06:09] LABS: MD YES
[2020-04-23 06:11] LABS: <PLATELET ESTIMATE> ADEQUATE; <PLT MORPHOLOGY> NORMAL PLT MORPH; ANISOCYTOSIS 1+; BAND#(MANUAL) 0.31 x10^3/uL; BANDS%(MANUAL) 2 % (0-7); LYMPH#(MANUAL) 1.99 x10^3/uL (1-3.4); LYMPHS% (MANUAL) 13 % (22-44); METAMYELOCYTES# (MANUAL) 0.15 x10^3/uL (0-0); METAMYELOCYTES% (MANUAL) 1 % (0-1); MONOS#(MANUAL) 0.61 x10^3/uL (0.3-2.7); MONOS% (MANUAL) 4 % (2-9); MYELOCYTES# (MANUAL) 0.15 x10^3/uL (0-0); MYELOCYTES% (MANUAL) 1 % (0-0); POLYCHROMASIA 1+; SEG#(MANUAL) 12.09 x10^3/uL (1.8-6.8); SEGS% (MANUAL) 79 % (42-75)
[2020-04-23 06:12] LABS: BASOPHILLIC STIPPLING 1+
[2020-04-23] MEDS: ALBUTEROL/IPRATROPIUM 2.5MG/0.5MG, 3 ML INLINE SCH ×5 (06:50→22:45)
[2020-04-23] MEDS ORDERED: ATROPINE SYRINGE 0.1 MG/ML, 10ML ONE (07:08)
[2020-04-23] MEDS ORDERED: EPINEPHRINE SYRINGE 0.1 MG/ML, 10ML ONE (07:08)
[2020-04-23] MEDS ORDERED: CALCIUM CHLORIDE 10%, 10ML SYR ONE (07:08)
[2020-04-23] MEDS: THIAMINE 100MG TABLET PO SCH ×2 (07:50→21:40)
[2020-04-23] MEDS: CHOLECALCIFEROL 5,000u TAB PO SCH (07:50)
[2020-04-23] MEDS: DOXAZOSIN 2MG TABLET PO SCH (07:50)
[2020-04-23] MEDS: ASCORBIC ACID 500 MG TABLET PO SCH ×2 (07:50→15:20)
[2020-04-23] MEDS: MULTIVITS,STRESS FORMULA 1 TABLET PO SCH (07:50)
[2020-04-23] MEDS: ZINC SULFATE 220 MG CAPSULE PO SCH (07:51)
[2020-04-23] MEDS: INSULIN GLARGINE 100 UNITS/ML, PEN SQ-INSULIN SCH ×2 (08:05→21:00)
[2020-04-23] MEDS: SODIUM CHLORIDE FLUSH 10ML SYR IVF SCH ×2 (08:08→21:00)
[2020-04-23] MEDS: DIPHENOXYLATE/ATROPINE ORAL SOL PO SCH (09:00)
[2020-04-23] MEDS ORDERED: PHENYLEPHRINE 50 MG in SODIUM CHLORIDE 0.9% 245 ML IV PRN (09:30)
[2020-04-23] MEDS ORDERED: VASOPRESSIN 20 UNIT in SODIUM CHLORIDE 0.9% 99 ML IV PRN (09:30)
[2020-04-23] MEDS: FENTANYL PF 1,000 MCG in SODIUM CHLORIDE 0.9% 80 ML IV PRN (19:24)
[2020-04-23] MEDS: FAMOTIDINE 20 MG/2 ML IVPush SCH (21:41)
[2020-04-23] MEDS: ALBUMIN HUMAN 25% 100 ML IV PRN ×2 (23:12→23:13)
[2020-04-24] MEDS: DEXTROSE 50%, 50ML SYRINGE IVPush PRN (01:41)
[2020-04-24] MEDS: ALBUTEROL/IPRATROPIUM 2.5MG/0.5MG, 3 ML INLINE SCH (03:30)
[2020-04-24] MEDS: PROPOFOL 100 ML IV PRN (03:31)
[2020-04-24] MEDS: CIPROFLOXACIN OPHTH SOLN 0.3%, 5ML EACHEYE SCH (03:33)
[2020-04-24] MEDS: ARTIFICIAL TEARS OINT 3.5 GM EACHEYE SCH (03:33)
[2020-04-24] MEDS ORDERED: ATROPINE SYRINGE 0.1 MG/ML, 10ML ONE (05:18)
[2020-04-24] MEDS ORDERED: EPINEPHRINE SYRINGE 0.1 MG/ML, 10ML ONE (05:18)
[2020-04-24] MEDS ORDERED: CALCIUM CHLORIDE 10%, 10ML SYR ONE (05:18)
[2020-04-24] MEDS ORDERED: CODE BLUE RESPONSE XX ONE (05:18)
[2020-04-24 05:22] LABS: MEAN CORPUSCULAR HGB CONC 32.9 g/dL (33.2-36.2); MEAN PLATELET VOLUME 7.4 fL (7.4-10.4); PLATELET COUNT 246 x10^3/uL (130-400); RED BLOOD COUNT 2.16 x10^6/uL (4.38-5.82); RED CELL DISTRIBUTION WIDTH 15.8 % (9.4-14.8)
[2020-04-24 05:25] LABS: ANION GAP 11 mmol/L (5-15); CALCIUM 7.7 mg/dL (8.5-10.1); CHLORIDE 95 mmol/L (98-107); CREATININE 4.97 mg/dL (0.7-1.3)
[2020-04-24 05:31] LABS: VANCOMYCIN,RANDOM 15.5 mcg/mL
[2020-04-24 05:51] LABS: MD YES
[2020-04-24 05:52] LABS: BAND#(MANUAL) 0.49 x10^3/uL; BANDS%(MANUAL) 4 % (0-7); EOS#(MANUAL) 0.24 x10^3/uL (0.0-0.4); EOS% (MANUAL) 2 % (1-7); MONOS#(MANUAL) 0.49 x10^3/uL (0.3-2.7); MONOS% (MANUAL) 4 % (2-9)
[2020-04-24 05:53] LABS: ANISOCYTOSIS 1+; LYMPH#(MANUAL) 2.44 x10^3/uL (1-3.4); LYMPHS% (MANUAL) 20 % (22-44); POLYCHROMASIA 1+; SEG#(MANUAL) 8.54 x10^3/uL (1.8-6.8); SEGS% (MANUAL) 70 % (42-75)
[2020-04-24 05:54] LABS: <PLATELET ESTIMATE> ADEQUATE; <PLT MORPHOLOGY> NORMAL PLT MORPH; BASOPHILLIC STIPPLING 1+
== END 2020-04-24 05:12 | disposition expired | DRG 871 ==
LOC: ED 13:54 → EDIP 14:36 → 4EST 15:54 → 4WST 04-02 16:39 → ICU 04-02 16:41
PROVIDERS: ADMIT Internal Medicine; ATTEND Internal Medicine
PROC: 5A09357 Assistance with Respiratory Ventilation, Less than 24 Consecutive Hours, Continuous Positive Airway Pressure (ICD-10-PCS; 2020-04-02)
PROC: 5A09357 Assistance with Respiratory Ventilation, Less than 24 Consecutive Hours, Continuous Positive Airway Pressure (ICD-10-PCS; 2020-04-03)
PROC: 02HV33Z Insertion of Infusion Device into Superior Vena Cava, Percutaneous Approach (ICD-10-PCS; 2020-04-04)
PROC: B5181ZA Fluoroscopy of Superior Vena Cava using Low Osmolar Contrast, Guidance (ICD-10-PCS; 2020-04-04)
PROC: B548ZZA Ultrasonography of Superior Vena Cava, Guidance (ICD-10-PCS; 2020-04-04)
PROC: 0T9B70Z Drainage of Bladder with Drainage Device, Via Natural or Artificial Opening (ICD-10-PCS; 2020-04-04)
PROC: 30233K1 Transfusion of Nonautologous Frozen Plasma into Peripheral Vein, Percutaneous Approach (ICD-10-PCS; principal; 2020-04-05)
PROC: 02HV33Z Insertion of Infusion Device into Superior Vena Cava, Percutaneous Approach (ICD-10-PCS; 2020-04-09)
PROC: B548ZZA Ultrasonography of Superior Vena Cava, Guidance (ICD-10-PCS; 2020-04-09)
PROC: XW033E5 Introduction of Remdesivir Anti-infective into Peripheral Vein, Percutaneous Approach, New Technology Group 5 (ICD-10-PCS; 2020-04-21)
DX: A41.9 Sepsis, unspecified organism (principal); U07.1 COVID-19; G93.41 Metabolic encephalopathy; J12.89 Other viral pneumonia; J96.01 Acute respiratory failure with hypoxia; J96.02 Acute respiratory failure with hypercapnia; N17.0 Acute kidney failure with tubular necrosis; R65.21 Severe sepsis with septic shock; E87.1 Hypo-osmolality and hyponatremia; E87.4 Mixed disorder of acid-base balance; J81.1 Chronic pulmonary edema; Z99.11 Dependence on respirator [ventilator] status; D63.8 Anemia in other chronic diseases classified elsewhere; D69.6 Thrombocytopenia, unspecified; D72.810 Lymphocytopenia; E11.21 Type 2 diabetes mellitus with diabetic nephropathy; E11.65 Type 2 diabetes mellitus with hyperglycemia; T38.0X5A Adverse effect of glucocorticoids and synthetic analogues, initial encounter; Z51.5 Encounter for palliative care; Z91.19 Patient's noncompliance with other medical treatment and regimen; G83.9 Paralytic syndrome, unspecified; Z99.2 Dependence on renal dialysis
CPT/HCPCS: 36415; 36600; 84145; 87106; 96365; 99285; J3490; 36556; 36573; 70450; 70551; 71045; 76937; 80048; 80053; 80202; 81001; 82040; 82533; 82542; 82728; 82803; 82947; 82962; 83036; 83605; 83615; 83735; 83880; 84100; 84478; 84484; 85014; 85018; 85025; 85049; 85379; 85384; 85520; 85610; 85730; 86140; 86704; 86706; 86850; 86900; 87040; 87070; 87077; 87081; 87086; 87186; 87205; 87324; 87340; 87635; 90935; 92950; 93005; 94002; 94003; 94640; 94660; G0378; J0456; J0461; J0696; J1100; J1644; J1650; J1940; J2185; J2250; J2543; J2704; J3010; J3370; J3480; J7070; P9047; C1751; J0330; J1642; J1815; J2060; J2920; J7030; J7050; P9017